=== PATIENT | female | born 1945 | race Caucasian/White ===

== ENCOUNTER → 2016-05-16 | Outpatient (CLI) | payer MEDICARE, OTHER ==
[2016-05-16 10:15] LABS: HEMATOCRIT 33.9 % (36.0-47.0); HEMOGLOBIN 10.7 g/dL (12.0-15.5); HGB HCT DIFFERENCE -1.8; MEAN CORPUSCULAR HEMOGLOBIN 19.8 pg (27.0-33.4); MEAN CORPUSCULAR HGB CONC 31.6 g/dL (32.0-36.0); RED CELL DISTRIBUTION WIDTH 16.6 % (11.5-14.0); WHITE BLOOD COUNT 6.8 10^3/uL (4.0-10.5)
[2016-05-16 10:16] LABS: MEAN CORPUSCULAR VOLUME 63 fl (80-97)
[2016-05-16 10:34] LABS: ALANINE AMINOTRANSFERASE 9 U/L (9-52); ALBUMIN 4.3 g/dL (3.5-5.0); ALKALINE PHOSPHATASE 64 U/L (38-126); ANION GAP 9 (5-19); ASPARTATE AMINO TRANSFERASE 24 U/L (14-36); BILIRUBIN,TOTAL 0.8 mg/dL (0.2-1.3); BLOOD UREA NITROGEN 16 mg/dL (7-20); CALCIUM 9.5 mg/dL (8.4-10.2); CARBON DIOXIDE 29 mmol/L (22-30); CHLORIDE 101 mmol/L (98-107); CHOLESTEROL 128.73 mg/dL (0-200); CREATININE RESULT 0.71 mg/dL (0.52-1.25); Direct HDL 74 mg/dL (>40); GLUCOSE 133 mg/dL (75-110); POTASSIUM 4.5 mmol/L (3.6-5.0); SODIUM 138.9 mmol/L (137-145); TOTAL PROTEIN 7.2 g/dL (6.3-8.2); TRIGLYCERIDES 80 mg/dL (<150)
[2016-05-16 10:45] LABS: DIRECT LDL 33 mg/dL (<100)
[2016-05-16 11:01] LABS: FREE T3 3.35 pg/mL (2.77-5.27)
[2016-05-16 11:15] LABS: THYROID STIMULATING HORMONE 1.57 uIU/mL (0.47-4.68)
[2016-05-16 12:42] LABS: ALANINE AMINOTRANSFERASE 9 U/L (9-52); ALBUMIN 4.3 g/dL (3.5-5.0); ALKALINE PHOSPHATASE 64 U/L (38-126); AMYLASE 32 U/L (30-110); ASPARTATE AMINO TRANSFERASE 24 U/L (14-36); BILIRUBIN,TOTAL 0.8 mg/dL (0.2-1.3); CHOLESTEROL 128.73 mg/dL (0-200); DIRECT LDL 33 mg/dL (<100); Direct HDL 74 mg/dL (>40); TOTAL PROTEIN 7.2 g/dL (6.3-8.2); TRIGLYCERIDES 80 mg/dL (<150)
== END ==
LOC: OD 08:37
PROVIDERS: ATTEND Family Medicine
DX: E03.9 Hypothyroidism, unspecified (principal); E78.5 Hyperlipidemia, unspecified; R82.90 Unspecified abnormal findings in urine; G31.84 Mild cognitive impairment of uncertain or unknown etiology; R51 Headache
CPT/HCPCS: 36415; 80053; 80061; 80076; 82150; 82607; 82746; 83036; 84439; 84443; 84481; 85027; 86592; 87086

== ENCOUNTER 2016-05-23 14:55 | Emergency (ER) | payer MEDICARE, OTHER ==
--- NOTE | 2016-05-23 15:04 | ER Document Report ---
ED Medical Screen (RME) - General Stated Complaint: ONE SIDE WEAKNESS Time seen by provider: 15:03 Mode of Arrival: Wheelchair Information source: Patient, Relative Notes: 71-year-old female presented to ED for possible stroke symptoms started 30 minutes ago. She has numbness and tingling to the right side of her face. Speech mildly garbled states it was more so before she came. She also has weakness to her right arm. states she's had a TIA in the past. was notified CT of the head ordered. I have greeted and performed a rapid initial assessment of this patient. A comprehensive ED assessment and evaluation of the patient, analysis of test results and completion of medical decision making process will be conducted by an additional ED providers. TRAVEL OUTSIDE OF THE [place] IN LAST 30 DAYS: No - Related Data Allergies/Adverse Reactions: Sulfa (Sulfonamide Antibiotics) Allergy (Verified 10/18/11 10:34) Hives Past Medical History - Social History Family history: Reviewed & Not Pertinent - Past Medical History Cardiac Medical History: Reports: Hx Hypertension Pulmonary Medical History: Neurological Medical History: Endocrine Medical History: Reports: Hx Diabetes Mellitus Type 1, Hx Diabetes Mellitus Type 2, Hx Hypothyroidism GI Medical History: Musculoskeltal Medical History: Reports Hx Arthritis Infectious Medical History: Past Surgical History: Reports: Hx Appendectomy, Hx Section, Hx Neurologic Surgery - CARPAL TUNNEL, Hx Orthopedic Surgery - BACK SURGERY. CARPAL TUNNEL RELEASE. - Immunizations Hx Diphtheria, Pertussis, Tetanus Vaccination: Yes
[2016-05-23 15:40] LABS: PROTHROMBIN TIME 12.8 SEC (11.4-15.4)
[2016-05-23 15:41] LABS: PARTIAL THROMBOPLASTIN TIME 29.5 SEC (23.5-35.8)
[2016-05-23 15:42] LABS: ABSOLUTE BASOPHILS # (AUTO) 0.1 10^3/uL (0.0-0.2); ABSOLUTE EOSINOPHILS # (AUTO) 0.2 10^3/uL (0.0-0.6); ABSOLUTE LYMPHOCYTES (AUTO) 2.1 10^3/uL (0.5-4.7); ABSOLUTE MONOCYTES (AUTO) 0.9 10^3/uL (0.1-1.4); ABSOLUTE NEUT (AUTO) 6.2 10^3/uL (1.7-8.2); BASOPHILS % (AUTO) 0.6 % (0-2); EOSINOPHILS % (AUTO) 2.4 % (0-6); HEMATOCRIT 35.8 % (36.0-47.0); HEMOGLOBIN 11.3 g/dL (12.0-15.5); HGB HCT DIFFERENCE -1.9; LYMPHOCYTES % (AUTO) 22.2 % (13-45); MEAN CORPUSCULAR HEMOGLOBIN 19.8 pg (27.0-33.4); MEAN CORPUSCULAR HGB CONC 31.4 g/dL (32.0-36.0); MEAN CORPUSCULAR VOLUME 63 fl (80-97); MONOCYTES % (AUTO) 9.3 % (3-13); RED BLOOD COUNT 5.68 10^6/uL (3.72-5.28); RED CELL DISTRIBUTION WIDTH 16.7 % (11.5-14.0); SEGMENTED NEUTROPHILS % (AUTO) 65.5 % (42-78); WHITE BLOOD COUNT 9.5 10^3/uL (4.0-10.5)
[2016-05-23 15:58] LABS: ALANINE AMINOTRANSFERASE 14 U/L (9-52); ALBUMIN 4.1 g/dL (3.5-5.0); ALKALINE PHOSPHATASE 66 U/L (38-126); ANION GAP 7 (5-19); ASPARTATE AMINO TRANSFERASE 27 U/L (14-36); BILIRUBIN,TOTAL 0.5 mg/dL (0.2-1.3); BLOOD UREA NITROGEN 17 mg/dL (7-20); CALCIUM 9.7 mg/dL (8.4-10.2); CARBON DIOXIDE 28 mmol/L (22-30); CHLORIDE 103 mmol/L (98-107); CREATINE KINASE 116 U/L (30-135); CREATININE RESULT 0.83 mg/dL (0.52-1.25); GLUCOSE 102 mg/dL (75-110); MAGNESIUM 1.8 mg/dL (1.6-2.3); POTASSIUM 4.5 mmol/L (3.6-5.0); SODIUM 138.1 mmol/L (137-145); TOTAL PROTEIN 7.6 g/dL (6.3-8.2)
[2016-05-23 16:01] LABS: ANISOCYTOSIS 1+; HYPOCHROMASIA 1+; MICROCYTOSIS 2+; OVALOCYTES SLIGHT; TARGET CELLS SLIGHT; TOXIC GRANULATION SLIGHT
[2016-05-23 16:10] LABS: CREATINE KINASE MB 2.12 ng/mL (<4.55); TROPONIN I < 0.012 ng/mL
--- NOTE | 2016-05-23 16:57 | ER Document Report ---
ED General - General Chief Complaint: S/S of Possible Stroke Stated Complaint: ONE SIDE WEAKNESS Time seen by provider: 15:15 Mode of Arrival: Wheelchair Information source: Patient Notes: 71-year-old female who reports a sensation of drawing in her left hand tingling in her left face and bilateral blurry vision beginning about 2:30 this afternoon. Note that triage notes document right sided tingling but the patient to this examiner says it was the left. After arrival and were sperm she also felt as if her left foot was drawing up towards her head she says the visual disturbances had resolved and tingling in her face had resolved and the drawing in her left hand had resolved. Shortly after initial examination by this physician the patient reports her left foot symptoms and also resolved. She reports she has a history of Parkinson's and chronically has left upper and lower extremity weakness and does not feel as if the weakness is any different than her baseline. She has had no syncope or confusion according to transportation attendant whether. She reports that for 3 months she is intermittently had a cough has been nonproductive and has taken a Z-Jesus Alberto for his says cough feels better now. She denies chest pain, abdominal pain, back pain, nausea, vomiting, dysuria, swelling to extremities, right-sided symptoms, difficulty with speech or swallowing. Review of records indicates an admission for TIA workup about 2 years ago with similar symptoms Physical Exam: General: Alert, appears well. HEENT: Normocephalic. Atraumatic. PERRLA. Extraocular movements intact. Oropharynx clear. Neck: Supple. Non-tender. No JVD no carotid bruits Respiratory: No respiratory distress. Clear and equal breath sounds bilaterally. Cardiovascular: Regular rate and rhythm. Abdominal: Normal Inspection. Soft, non-tender. No distension. Normal Bowel Sounds. Back: Non-tender. No deformity or step off. Extremities: Moves all four extremities. Upper extremities: Normal inspection. Non-tender. Normal color. Normal ROM. Normal temperature. Lower extremities: Normal inspection. Non-tender. No edema. Normal color. Normal ROM. Normal temperature. Neurological: Cranial nerves III through XII are intact. Speech is clear. Mentation normal. Market Analyst strength 4+ out of 5 to the left upper extremity compared to 5 out of 5 on the right. Motor function 4+ out of 5 to left lower extremities. 5 out of 5 on the right. Light touch sensation intact all 4 extremities. Cerebellar function intact by finger-nose test bilaterally. Patient ambulates with no difficulty Psychological: Normal affect. Normal Mood. Skin: Warm. Dry. Normal color. TRAVEL OUTSIDE OF THE [place] IN LAST 30 DAYS: No - Related Data Allergies/Adverse Reactions: Sulfa (Sulfonamide Antibiotics) Allergy (Verified 10/18/11 10:34) Hives Past Medical History - General Information source: Patient, Relative - Social History Smoking Status: Former Smoker Family History: Reviewed & Not Pertinent Patient has suicidal ideation: No Patient has homicidal ideation: No - Past Medical History Cardiac Medical History: Reports: Hx Hypertension Pulmonary Medical History: Neurological Medical History: Reports: Other - Parkinson's disease Endocrine Medical History: Reports: Hx Diabetes Mellitus Type 1, Hx Diabetes Mellitus Type 2, Hx Hypothyroidism Renal/ Medical History: Denies: Hx Peritoneal Dialysis GI Medical History: Musculoskeltal Medical History: Reports Hx Arthritis Infectious Medical History: Past Surgical History: Reports: Hx Appendectomy, Hx Section, Hx Neurologic Surgery - CARPAL TUNNEL, Hx Orthopedic Surgery - BACK SURGERY. CARPAL TUNNEL RELEASE. - Immunizations Hx Diphtheria, Pertussis, Tetanus Vaccination: Yes Review of Systems - Review of Systems Constitutional: denies: Chills, Fever EENT: Blurred vision. denies: Ear pain, Throat pain Cardiovascular: denies: Chest pain, Palpitations, Dyspnea, Syncope Respiratory: Cough. denies: Short of breath Gastrointestinal: denies: Abdominal pain, Diarrhea, Nausea, Vomiting Genitourinary: denies: Burning, Dysuria Female Genitourinary: denies: Musculoskeletal: denies: Back pain, Muscle pain Skin: denies: Rash Hematologic/Lymphatic: denies: Swollen glands Neurological/Psychological: See HPI Physical Exam - Vital signs Vitals: Pulse Resp BP Pulse Ox 62 19 157/64 H 99 05/23/16 15:30 05/23/16 15:30 05/23/16 15:30 05/23/16 15:30 Course - Re-evaluation Re-evalutation: 05/23/16 16:57 Patient has remained at her neurologic baseline during her stay in emergency department. Patient reports that she was instructed to take baby aspirin after her last TIA admission but recently has not been doing so. She doesn't wish to be admitted to the hospital given the fact that she's had workup for this within the past few years and don't believe she requires readmission for another TIA workup. She is instructed to resume her baby aspirin and follow her physician Dr. Zendejas. She reports her cough is improved and clinically she is not having acute bronchitis now doesn't require treatment for that - Vital Signs Vital signs: Temp Pulse Resp BP Pulse Ox 98.2 F 62 18 157/64 H 98 05/23/16 15:34 05/23/16 15:34 05/23/16 16:06 05/23/16 15:34 05/23/16 16:06 - Laboratory Result Diagrams: 05/23/16 15:25 05/23/16 15:25 Laboratory results interpreted by me: 05/23/16 15:25 RBC 5.68 H Hgb 11.3 L Hct 35.8 L MCV 63 L MCH 19.8 L MCHC 31.4 L RDW 16.7 H - Diagnostic Test Radiology reviewed: Image reviewed, Reports reviewed - EKG Interpretation by Me Additional EKG results interpreted by me: 05/23/16 16:51 EKG reviewed by myself shows sinus rhythm at 80 with no acute changes Discharge - Discharge Clinical Impression: TIA (transient ischemic attack) Qualifiers: Transient cerebral ischemia type: unspecified Qualified Code(s): G45.9 - Transient cerebral ischemic attack, unspecified Condition: Stable Disposition: HOME, SELF-CARE Additional Instructions: Transient Ischemic Attack You have been diagnosed as having a transient ischemic attack (TIA). This is caused when an artery to the brain has been temporarily blocked. It can result in visual changes, difficulty with speech, and weakness or numbness -- usually limited to one side of the body. TIA symptoms usually resolve within an hour, but a TIA is serious, as it may be a warning sign of an impending stroke. To prevent further episodes, you may be placed on medication to reduce the possibility that your platelets will aggregate and form blood clots in the arteries that supply the brain. Usually, this includes aspirin and sometimes other platelet inhibitors. Further evaluation is often necessary to make an exact diagnosis as to where these blood clots are originating, and if anything else needs to be done to correct the problem. Call the physician or go to the emergency room if episodes occur with increasing frequency. If symptoms occur that don't go away within a few minutes , call 911. Take 1 baby aspirin every day Referrals: CHARISMA ZENDEJAS MD [Primary Care Provider] - Follow up in 1 week
[2016-05-23] MEDS ORDERED: ASPIRIN 325 MG TABLET, ENT COATED PO ONE (16:59)
[2016-05-23 17:08] VITALS: BP 166/61
--- NOTE | 2016-05-23 23:48 | EKG REPORT ---
SEVERITY:- BORDERLINE ECG - SINUS RHYTHM PROBABLE LEFT ATRIAL ABNORMALITY : Confirmed by: Joslyn Pendleton 23-May-2016 23:48:08
== END 2016-05-23 17:10 | disposition home or self-care (01) ==
LOC: ER 14:55
DX: G45.9 Transient cerebral ischemic attack, unspecified (principal); R20.2 Paresthesia of skin; H53.8 Other visual disturbances; R05 Cough; G20 Parkinson's disease; I10 Essential (primary) hypertension; Z87.891 Personal history of nicotine dependence; E11.9 Type 2 diabetes mellitus without complications
CPT/HCPCS: 93005; 99285; 36415; 82553; 82550; 83735; 85025; 85610; 85730; 80053; 84484; 71010; 70450; 93010; A9270

== ENCOUNTER → 2016-05-31 | Outpatient (CLI) | payer MEDICARE, OTHER ==
--- NOTE | 2016-06-01 15:08 | CAROTID DOPPLER PRO FEE REPORT ---
CAROTID DUPLEX DOPPLER REPORT PATIENT NAME: DARRON ARZOLA ROOM#: DATE OF STUDY: 05/31/2016 DATE OF : 1945 REFERRING MD: JAIME VIVAR M.D. ORDER NO: [id number] TECHNOLOGIST: Lloyd Lewis INDICATION: TIA STUDY: The color carotid duplex scan was performed with real time images and real time Doppler velocity measurements. Real time images indicated no plaque formation, either right or left carotid artery. Doppler velocity measurements were as follows: MEASUREMENT: RIGHT LEFT CCA PSV (prox/mid) 97 cm/sec 97 cm/sec CCA PSV (distal) 67 cm/sec 80 cm/sec CCA EDV (prox/mid) 11 cm/sec 19 cm/sec CCA EDV (distal) 12 cm/sec 21 cm/sec ICA PSV (proximal) 47 cm/sec 55 cm/sec ICA PSV (distal) 75 cm/sec 72 cm/sec ICA EDV (proximal) 12 cm/sec 14 cm/sec ICA EDV (distal) 22 cm/sec 21 cm/sec ECA 101 cm/sec 85 cm/sec ICA/CCA RATIO: 1.1 on the right and 0.9 on the left. Vertebrals are patent. Flow is cephalad. FINAL IMPRESSION: NO PLAQUE FORMATION, LESS THAN 50% STENOTIC FLOW, ESSENTIALLY A NORMAL STUDY. INTERPRETING PHYSICIAN: JAIME VIVAR M.D. /: HAM TT: 1503 ID: [id number] /: [id number] TD: [id number] JOB: [id number] cc:JAIME VIVAR M.D. >
== END ==
LOC: SP 13:57
PROVIDERS: ATTEND Specialist
DX: G45.9 Transient cerebral ischemic attack, unspecified (principal); R56.9 Unspecified convulsions
CPT/HCPCS: 93880

== ENCOUNTER → 2016-06-22 | Outpatient (CLI) | payer MEDICARE, OTHER | LOC: OD 16:56 | PROVIDERS: ATTEND Physician Assistant Surgical | DX: R19.5 Other fecal abnormalities (principal); R10.13 Epigastric pain; R11.0 Nausea; Z11.59 Encounter for screening for other viral diseases ==

== ENCOUNTER 2016-07-18 22:26 | Emergency (ER) | payer MEDICARE, OTHER ==
--- NOTE | 2016-07-18 23:16 | ER Document Report ---
ED General - General Chief Complaint: S/S of Possible Stroke Stated Complaint: POSSIBLE STROKE Time seen by provider: 23:02 Mode of Arrival: Ambulatory - Is Information source: Patient, Relative TRAVEL OUTSIDE OF THE [place] IN LAST 30 DAYS: No - HPI Notes: Patient is a 71-year-old white female history of previous TIAs and Parkinson's disease comes in with report that she has headache that has been off and on during the course of the day and reports she feels somewhat disoriented versus her baseline. She reports occasional tingling in the legs and occasionally in the face, but she also has diabetic neuropathy. She also has chronic back pain. Patient usually takes hydrocodone almost daily but a very small dose 7.5 mg less than 1 tablet per day, as she breaks tablets and a quarters. She did not take any of the pain medication today. Patient reports previous history of headaches remotely, but has not had a headache for some time. She denies head injury. She states this is not the worst headache of her life. She denies any neck stiffness. She reports no focal weakness that is new, stating that occasionally she feels like her left hand feels stiff, but she has some pain from the wrist to the hand which is chronic associated with this. No nausea or vomiting. No fever or chills. - Related Data Allergies/Adverse Reactions: Sulfa (Sulfonamide Antibiotics) Allergy (Verified 10/18/11 10:34) Hives Past Medical History - Social History Smoking Status: Never Smoker Frequency of alcohol use: None Drug Abuse: None Lives with: Family Family History: Reviewed & Not Pertinent Patient has suicidal ideation: No Patient has homicidal ideation: No - Past Medical History Cardiac Medical History: Reports: Hx Hypertension Pulmonary Medical History: Neurological Medical History: Endocrine Medical History: Reports: Hx Diabetes Mellitus Type 1, Hx Diabetes Mellitus Type 2, Hx Hypothyroidism Renal/ Medical History: Denies: Hx Peritoneal Dialysis GI Medical History: Musculoskeltal Medical History: Reports Hx Arthritis Infectious Medical History: Past Surgical History: Reports: Hx Appendectomy, Hx Section, Hx Neurologic Surgery - CARPAL TUNNEL, Hx Orthopedic Surgery - BACK SURGERY. CARPAL TUNNEL RELEASE. - Immunizations Hx Diphtheria, Pertussis, Tetanus Vaccination: Yes Review of Systems - Review of Systems Notes: REVIEW OF SYSTEMS: CONSTITUTIONAL : Denies fever, chills, or sweats. Denies recent illness. EENT: Denies eye, ear, throat, or mouth pain or symptoms. Denies nasal or sinus congestion or discharge. Denies throat, tongue, or mouth swelling or difficulty swallowing. CARDIOVASCULAR: Denies chest pain. Denies palpitations or racing or irregular heart beat. Denies ankle edema. RESPIRATORY: Denies cough, cold, or chest congestion. Denies shortness of breath, difficulty breathing, or wheezing. GASTROINTESTINAL: Denies abdominal pain or distention. Denies nausea, vomiting , or diarrhea. Denies blood in vomitus, stools, or per rectum. Denies black, tarry stools. Denies constipation. GENITOURINARY: Denies difficulty urinating, painful urination, burning, frequency, blood in urine, or discharge. FEMALE GENITOURINARY: Denies vaginal bleeding, heavy or abnormal periods, irregular periods. Denies vaginal discharge or odor. MUSCULOSKELETAL: Denies neck pain or stiffness. Denies joint pain or swelling. Patient reports chronic back pain which is unchanged. She denies any recent back injury. SKIN: Denies rash, lesions or sores. HEMATOLOGIC : Denies easy bruising or bleeding. LYMPHATIC: Denies swollen, enlarged glands. NEUROLOGICAL: Denies altered mental status. Patient states she feels confused , but reports she seems to be acting normally. Denies passing out or loss of consciousness. Denies dizziness or lightheadedness. Denies new problems with gait or speech. Denies seizures. Patient reports she chronically has trouble ambulating related to her Parkinson' s disease. She usually uses her to assist her in ambulation, but she also has a walker that she has access to at home. PSYCHIATRIC: Patient admits to anxiety stating "I don't know what's going on," when she starts to cry. Denies depression, suicidal ideation, or homicidal ideation. ALL OTHER SYSTEMS REVIEWED AND NEGATIVE. Dictation was performed using [employer] voice recognition software -: Yes All other systems reviewed and negative Physical Exam - Vital signs Vitals: Temp Pulse Resp BP Pulse Ox 97.5 F 90 20 151/70 H 98 07/18/16 22:28 07/18/16 22:28 07/18/16 22:28 07/18/16 22:28 07/18/16 22:28 - Notes Notes: PHYSICAL EXAMINATION: GENERAL: Well-appearing, well-nourished. Anxious and occasionally breaks down in tears. HEAD: Atraumatic, normocephalic. EYES: Pupils equal round and reactive to light, extraocular movements intact, conjunctiva are normal. ENT: Nares patent, oropharynx clear without exudates. Moist mucous membranes. NECK: Normal range of motion, supple without lymphadenopathy. No carotid bruits. LUNGS: Breath sounds clear to auscultation bilaterally and equal. No wheezes rales or rhonchi. HEART: Regular rate and rhythm without murmurs ABDOMEN: Soft, nontender, nondistended abdomen. No guarding, no rebound. No masses appreciated. Female : deferred Musculoskeletal: Normal range of motion. No cyanosis. 1+ bilateral lower extremity edema, which patient states is chronic. NEUROLOGICAL: Cranial nerves grossly intact. Normal speech, normal gait. Motor exam shows no unilateral weakness with 5 over 5 motor strength. Patient does have a very very minimal parkinsonian intention tremor noted. Finger to nose test shows no significant ataxia but more of the intention tremor. PSYCH: Anxious. SKIN: Warm, Dry, normal turgor, no rashes or lesions noted. Course - Re-evaluation Re-evalutation: 07/19/16 01:27 After morphine and Zofran and by mouth Ativan, the patient reported improvement in her headache, but she stated she started having some chest pain with some belching. Repeat EKG at 00 56 as interpreted by me showed normal sinus rhythm hard of 71. There is no gross evidence for acute FL or ischemia identified. There was no change from previous EKG performed on the patient Patient was given Maalox and Pepcid by mouth. 07/19/16 02:49 After Maalox and Pepcid, the patient denied any chest discomfort. The patient reported no headache and she requested to go home. There is no evidence for anemia, hypoglycemia, significant electrolyte imbalance , CVA or obvious TIA. Cardiac ischemia, pneumonia, congestive heart failure. Patient's symptoms fit with prior episodes and giving her episodes of crying and anxiety, question anxiety is part of the etiology for the patient's symptoms. Patient was reassured. - Vital Signs Vital signs: Temp Pulse Resp BP Pulse Ox 97.5 F 90 20 151/70 H 98 07/18/16 22:28 07/18/16 22:28 07/18/16 22:28 07/18/16 22:28 07/18/16 22:28 - Laboratory Result Diagrams: 07/18/16 23:00 07/18/16 23:00 Laboratory results interpreted by me: 07/18/16 07/18/16 07/18/16 23:00 23:00 23:52 Hgb 10.6 L Hct 33.4 L MCV 64 L MCH 20.2 L MCHC 31.7 L RDW 17.3 H BUN 21 H Glucose 183 H AST 47 H Urine Protein 100 H Urine Ketones TRACE H Ur Leukocyte Esterase TRACE H Urine Ascorbic Acid 20 H - EKG Interpretation by Me EKG shows normal: Sinus rhythm - EKG as interpreted by me showed normal sinus rhythm heart rate of 79. There is no gross evidence for acute FL or ischemia identified. Rate: Normal Additional EKG results interpreted by me: 07/19/16 01:26 Initial EKG is interpreted by me showed normal sinus rhythm and heart of 79. There is no gross evidence for acute FL or ischemia identified. Discharge - Discharge Clinical Impression: Dehydration Headache Qualifiers: Headache type: unspecified Headache chronicity pattern: acute headache Intractability: not intractable Qualified Code(s): R51 - Headache Altered mental state Qualifiers: Altered mental status type: unspecified Qualified Code(s): R41.82 - Altered mental status, unspecified Clinical Impression: (Ruled Out): Headache , short unilat neuralgiform, w/conjunctival injection/ tearing Condition: Stable Disposition: HOME, SELF-CARE Additional Instructions: Anxiety The physician feels that some of your health problems are being caused by anxiety. Anxiety affects your health in many ways. Anxiety alone can cause palpitations, sweats, chest pains, abdominal pains, shortness of breath, and headaches. It contributes to ulcer disease, high blood pressure, irritable bowel syndrome, and has been shown to cause flare-ups of many other diseases. Anxiety is not a simple disorder to treat. If the anxiety is due to recent life stresses, you may simply need time to "work through" the changes. If the anxiety is due to an underlying unhappiness with yourself or due to psychiatric disturbance, professional help will be needed. Your physician can refer you for further help if needed. Anti-anxiety medication is occasionally given if the stress is acute or if you are having trouble sleeping. Chronic or frequent use of these medications is not a good idea because the body becomes reliant on it, preventing you from dealing with life's normal stresses.Dehydration Dehydration can result from vomiting or diarrhea, fever, or decreased intake of fluids. If severe, hospitalization and intravenous fluids may be required. Most cases are treated at home with fluids by mouth. For the next 24 hours, drink lots of clear fluids. In mild cases, this can be soda pop or sports drinks. For more severe dehydration, the doctor may recommend special fluids such as Pedialyte or Lytren. Try to get three liters ( 3 quarts) of fluid per day. If vomiting occurs, continue to drink the fluids frequently (every 15 to 20 minutes), but in small amounts (one or two ounces). Depending on the type of dehydration, the doctor may prescribe antinausea medicine or potassium replacements. Call the doctor or return for re-examination if you become progressively weak, vomit repeatedly, or have other new symptoms. Headache The physician does not feel that the headache you are experiencing has a serious underlying cause. Most headaches are due to emotional stress, with resultant muscle tension (tension headache). Occasionally, headaches are secondary to changes in the blood vessels of the scalp (vascular headache and migraine headache). Sometimes, a headache is the first symptom of another developing illness, such as a viral infection. You have no evidence of stroke, bleeding, meningitis, or other serious cause of your headache. The treatment of headaches varies with the severity and cause of the pain. Not all headaches need pain shots. In fact, there is evidence that using narcotics for headaches may make them worse in the long run. The physician will determine the therapy that's in your best interest. If you develop a fever, if the headache is different from any you've previously experienced, or if the headache progressively worsens, then call your physician at once or go to the emergency room. Take your hydrocodone pain medication as directed for any further headache. Drink plenty of fluids. Referrals: CHARISMA CRUZ MD [Primary Care Provider] - Follow up as needed
[2016-07-18] MEDS ORDERED: ONDANSETRON HCL INJ/PF 4 MG/2 ML SDV IV ONE (23:18)
[2016-07-18] MEDS ORDERED: MORPHINE SULFATE 10 MG/ML INJ IV ONE (23:18)
[2016-07-18] MEDS ORDERED: LORAZEPAM 1 MG TABLET PO ONE (23:18)
[2016-07-18] MEDS ORDERED: ACETAMINOPHEN 325 MG TABLET PO ONE (23:22)
[2016-07-18 23:23] LABS: PROTHROMBIN TIME 12.8 SEC (11.4-15.4)
[2016-07-18 23:28] LABS: ABSOLUTE BASOPHILS # (AUTO) 0.1 10^3/uL (0.0-0.2); ABSOLUTE EOSINOPHILS # (AUTO) 0.2 10^3/uL (0.0-0.6); ABSOLUTE LYMPHOCYTES (AUTO) 1.7 10^3/uL (0.5-4.7); ABSOLUTE MONOCYTES (AUTO) 0.7 10^3/uL (0.1-1.4); BASOPHILS % (AUTO) 0.9 % (0-2); EOSINOPHILS % (AUTO) 2.8 % (0-6); HEMATOCRIT 33.4 % (36.0-47.0); HEMOGLOBIN 10.6 g/dL (12.0-15.5); HGB HCT DIFFERENCE -1.6; LYMPHOCYTES % (AUTO) 22.6 % (13-45); MEAN CORPUSCULAR HEMOGLOBIN 20.2 pg (27.0-33.4); MEAN CORPUSCULAR HGB CONC 31.7 g/dL (32.0-36.0); MONOCYTES % (AUTO) 9.2 % (3-13); RED BLOOD COUNT 5.23 10^6/uL (3.72-5.28); RED CELL DISTRIBUTION WIDTH 17.3 % (11.5-14.0); SEGMENTED NEUTROPHILS % (AUTO) 64.5 % (42-78); WHITE BLOOD COUNT 7.7 10^3/uL (4.0-10.5)
[2016-07-18 23:41] LABS: ALANINE AMINOTRANSFERASE 17 U/L (9-52); ALBUMIN 4.6 g/dL (3.5-5.0); ALKALINE PHOSPHATASE 68 U/L (38-126); ANION GAP 12 (5-19); ASPARTATE AMINO TRANSFERASE 47 U/L (14-36); BILIRUBIN,DIRECT 0.3 mg/dL (0.0-0.4); BILIRUBIN,TOTAL 0.6 mg/dL (0.2-1.3); BLOOD UREA NITROGEN 21 mg/dL (7-20); CALCIUM 9.5 mg/dL (8.4-10.2); CARBON DIOXIDE 24 mmol/L (22-30); CHLORIDE 104 mmol/L (98-107); CREATININE RESULT 0.67 mg/dL (0.52-1.25); GLUCOSE 183 mg/dL (75-110); POTASSIUM 3.9 mmol/L (3.6-5.0); SODIUM 140.1 mmol/L (137-145); TOTAL PROTEIN 7.4 g/dL (6.3-8.2)
[2016-07-19 00:03] LABS: ANISOCYTOSIS 1+; BURR CELLS SLIGHT; HYPOCHROMASIA 1+; MICROCYTOSIS 3+; OVALOCYTES SLIGHT; POIKILOCYTOSIS SLIGHT; SCHISTOCYTES SLIGHT; TARGET CELLS SLIGHT; TOXIC GRANULATION SLIGHT
[2016-07-19 00:04] LABS: MEAN CORPUSCULAR VOLUME 64 fl (80-97)
[2016-07-19 00:12] LABS: THYROID STIMULATING HORMONE 2.57 uIU/mL (0.47-4.68)
[2016-07-19 00:25] LABS: APPEARANCE,URINE CLEAR; BILIRUBIN,URINE NEGATIVE (NEGATIVE); GLUCOSE, URINE NEGATIVE (NEGATIVE); KETONES,URINE TRACE mg/dL (NEGATIVE); LEUKOCYTE ESTERASE,URINE TRACE (NEGATIVE); NITRITE,URINE NEGATIVE (NEGATIVE); PROTEIN,URINE 100 mg/dL (NEGATIVE); UROBILINOGEN,URINE NEGATIVE mg/dL (<2.0)
[2016-07-19] MEDS ORDERED: FAMOTIDINE 20 MG TABLET PO ONE (00:35)
[2016-07-19] MEDS ORDERED: MAG HYDROX/AL HYDROX/SIMETH SUSP 30 ML UDCUP PO ONE (00:35)
[2016-07-19 03:31] VITALS: BP 126/54
--- NOTE | 2016-07-19 07:19 | EKG REPORT ---
SEVERITY:- NORMAL ECG - SINUS RHYTHM : Confirmed by: Lupillo Murray MD 19-Jul-2016 07:18:27
[2016-07-19 11:35] LABS: PATH REVIEW PATHOLOGIST REVIEWED
== END 2016-07-19 03:10 | disposition home or self-care (01) ==
LOC: ER 22:26
DX: R51 Headache (principal); E86.0 Dehydration; R41.82 Altered mental status, unspecified; R20.2 Paresthesia of skin; E11.40 Type 2 diabetes mellitus with diabetic neuropathy, unspecified; G89.29 Other chronic pain; M54.9 Dorsalgia, unspecified; I10 Essential (primary) hypertension; G20 Parkinson's disease; Z88.2 Allergy status to sulfonamides; Z86.73 Personal history of transient ischemic attack (TIA), and cerebral infarction without residual deficits
CPT/HCPCS: 93005; 99285; 96374; 96375; 36415; 84439; 82962; 84443; 85025; 85610; 80053; 81001; 84484; 71010; 70450; 93010; A9270 ×3; J2270; J2405

== ENCOUNTER → 2016-08-03 | Outpatient (CLI) | payer MEDICARE | LOC: OD 16:57 | PROVIDERS: ATTEND Family Medicine | DX: E03.9 Hypothyroidism, unspecified (principal); Z79.899 Other long term (current) drug therapy | CPT/HCPCS: 36415; 84436; 84443 ==

== ENCOUNTER → 2016-11-28 | Outpatient (CLI) | payer MEDICARE, OTHER | LOC: OD 08:08 | PROVIDERS: ATTEND Family Medicine | DX: E03.9 Hypothyroidism, unspecified (principal); E78.5 Hyperlipidemia, unspecified; E11.9 Type 2 diabetes mellitus without complications; Z79.899 Other long term (current) drug therapy | CPT/HCPCS: 36415; 82043; 83036 ==

== ENCOUNTER → 2017-02-26 | Outpatient (CLI) | payer MEDICARE, OTHER ==
--- NOTE | 2017-02-26 14:41 | RADIOLOGY REPORT (SQ) ---
EXAM DESCRIPTION: CT ABD/PELVIS ORAL ONLY COMPLETED DATE/TIME: 02/26/2017 9:02 am REASON FOR STUDY: BLOATING (R14.0), ABN WEIGHT LOSS (R63.4), CONSTIPATION (K59.01) R14.0 ABDOMINAL DISTENSION (GASEOUS) K30 FUNCTIONAL DYSPEPSIA R63.4 ABNORMAL WEIGHT LOSS COMPARISON: None. TECHNIQUE: CT scan of the abdomen and pelvis performed with oral contrast and no intravenous contras t. Images reviewed with lung, soft tissue, and bone windows. Reconstructed coronal and sagittal MPR i mages reviewed. All images stored on PACS. All CT scanners at this facility use dose modulation, iterative reconstruction, and/or weight based d osing when appropriate to reduce radiation dose to as low as reasonably achievable (ALARA). [facility]: Dose Right [facility]: CareDose [facility]: Dose Right [facility]: Teradose 4D [facility]: [employer] RADIATION DOSE: Up-to-date CT equipment and radiation dose reduction techniques were employed. CTDIv ol: 17.2 mGy. DLP: 898 mGy-cm. mGy. LIMITATIONS: None. FINDINGS: LOWER CHEST: No significant findings. No nodules or infiltrates. NON-CONTRASTED LIVER, SPLEEN, ADRENALS: Evaluation limited by lack of IV contrast. No identified sign ificant masses. PANCREAS: No masses. No peripancreatic inflammatory changes. GALLBLADDER: Surgically absent. RIGHT KIDNEY AND URETER: No suspicious masses. Assessment limited by lack of IV contrast. No signif icant calcifications. No hydronephrosis or hydroureter. LEFT KIDNEY AND URETER: No suspicious masses. Assessment limited by lack of IV contrast. No signifi cant calcifications. No hydronephrosis or hydroureter. AORTA AND RETROPERITONEUM: No aneurysm. No retroperitoneal masses or adenopathy. BOWEL AND PERITONEAL CAVITY: There is a filling defect in the proximal ascending colon suspicious for an apple-core lesion. No ascites or free air. APPENDIX: Not visualized. PELVIS, BLADDER, AND ABDOMINAL WALL: No abnormal pelvic masses. No abdominal wall hernias. Bladder un remarkable. BONES: No acute findings OTHER: No other significant finding. IMPRESSION: Suspected apple-core lesion in the proximal ascending colon. TECHNICAL DOCUMENTATION: JOB ID: [id number] Quality ID # [id number]: Final reports with documentation of one or more dose reduction techniques (e.g., Au tomated exposure control, adjustment of the mA and/or kV according to patient size, use of iterative reconstruction technique) 2010 [employer]- All Rights Reserved
== END ==
LOC: RAD 08:10
PROVIDERS: ATTEND Internal Medicine Gastroenterology
DX: R14.0 Abdominal distension (gaseous) (principal); K30 Functional dyspepsia; R63.4 Abnormal weight loss; K59.01 Slow transit constipation; R10.816 Epigastric abdominal tenderness
CPT/HCPCS: 74176

== ENCOUNTER → 2017-06-07 | Outpatient (CLI) | payer MEDICARE, OTHER ==
[2017-06-07 09:16] LABS: ALANINE AMINOTRANSFERASE 14 U/L (9-52); ALBUMIN 4.3 g/dL (3.5-5.0); ALKALINE PHOSPHATASE 48 U/L (38-126); AMYLASE 30 U/L (30-110); ASPARTATE AMINO TRANSFERASE 31 U/L (14-36); BILIRUBIN,DIRECT 0.4 mg/dL (0.0-0.4); BILIRUBIN,TOTAL 0.7 mg/dL (0.2-1.3); CHOLESTEROL 148.03 mg/dL (0-200); TOTAL PROTEIN 6.9 g/dL (6.3-8.2); TRIGLYCERIDES 77 mg/dL (<150)
[2017-06-07 09:27] LABS: DIRECT LDL 47 mg/dL (<100)
== END ==
LOC: OD 08:18
PROVIDERS: ATTEND Family Medicine
DX: E03.9 Hypothyroidism, unspecified (principal); E78.5 Hyperlipidemia, unspecified; E11.9 Type 2 diabetes mellitus without complications; Z79.899 Other long term (current) drug therapy
CPT/HCPCS: 36415; 80061; 80076; 82150; 83036; 84436; 84443

== ENCOUNTER 2017-08-18 21:45 | Emergency (ER) | payer MEDICARE, OTHER ==
[2017-08-18] MEDS ORDERED: ASPIRIN 81 MG TABLET, CHEWABLE PO ONE (22:19)
[2017-08-18] MEDS ORDERED: NORMAL SALINE 1000 ML 1,000 ML IV ONE (22:20)
--- NOTE | 2017-08-18 22:40 | ER Document Report ---
ED General - General Chief Complaint: Chest Pain Stated Complaint: CHEST PAIN Time Seen by Provider: 08/18/17 22:18 Information source: Patient, Relative - daughter TRAVEL OUTSIDE OF THE [place] IN LAST 30 DAYS: No - HPI Patient complains to provider of: 'I can't breathe" Onset: This afternoon Onset/Duration: Gradual, Persistent Quality of pain: No pain Notes: Pt. states she was at her grandson's graduation outside today and sat in the shade. She states she became SOB and when this usually happens she takes her carb/levo Parkinson's medication and the SOB is relieved. Today it persisted and she left the graduation early. She went home and it continued so she came here for evaluation. pt. denies any chest pain today. Patient's daughter states that patient does have bouts of anxiety. - Related Data Allergies/Adverse Reactions: Sulfa (Sulfonamide Antibiotics) Allergy (Verified 08/18/17 21:47) Hives Past Medical History - General Information source: Patient, Relative - Social History Smoking Status: Never Smoker Chew tobacco use (# tins/day): No Frequency of alcohol use: None Drug Abuse: None Lives with: Family - Family History: Reviewed & Not Pertinent Patient has suicidal ideation: No Patient has homicidal ideation: No - Past Medical History Cardiac Medical History: Reports: Hx Hypertension Pulmonary Medical History: Reports: None EENT Medical History: Reports: None Neurological Medical History: Reports: Other - Tia Endocrine Medical History: Reports: Hx Diabetes Mellitus Type 1, Hx Diabetes Mellitus Type 2, Hx Hypothyroidism Renal/ Medical History: Reports: None. Denies: Hx Peritoneal Dialysis GI Medical History: Musculoskeltal Medical History: Reports Hx Arthritis Psychiatric Medical History: Reports: Hx Anxiety Traumatic Medical History: Reports: None Infectious Medical History: Past Surgical History: Reports: Hx Appendectomy, Hx Section, Hx Neurologic Surgery - CARPAL TUNNEL, Hx Orthopedic Surgery - BACK SURGERY. CARPAL TUNNEL RELEASE. - Immunizations Hx Diphtheria, Pertussis, Tetanus Vaccination: Yes Review of Systems - Review of Systems Constitutional: No symptoms reported EENT: No symptoms reported Cardiovascular: No symptoms reported Respiratory: Short of breath Gastrointestinal: No symptoms reported Genitourinary: No symptoms reported Musculoskeletal: No symptoms reported Hematologic/Lymphatic: No symptoms reported Neurological/Psychological: No symptoms reported Physical Exam - Vital signs Vitals: Resp Pulse Ox 18 97 08/18/17 22:43 08/18/17 22:43 - Notes Notes: PHYSICAL EXAMINATION: GENERAL: Well-appearing, well-nourished and in no acute distress. Mildly anxious appearing. HEAD: Atraumatic, normocephalic. EYES: Pupils equal round and reactive to light, extraocular movements intact, conjunctiva are normal. ENT: Nares patent, oropharynx clear without exudates. Moist mucous membranes. NECK: Normal range of motion, supple without lymphadenopathy LUNGS: Breath sounds clear to auscultation bilaterally and equal. No wheezes rales or rhonchi. HEART: Regular rate and rhythm without murmurs ABDOMEN: Soft, nontender, nondistended abdomen. No guarding, no rebound. No masses appreciated. Female : deferred Musculoskeletal: Normal range of motion, no pitting or edema. No cyanosis. NEUROLOGICAL: Cranial nerves grossly intact. Normal speech. Normal sensory, motor exams PSYCH: Normal mood, normal affect. SKIN: Warm, Dry, normal turgor, no rashes or lesions noted. Course - Re-evaluation Re-evalutation: 08/18/17 23:41 Labs- All tests 24 hr 08/18/17 08/18/17 08/18/17 22:51 22:51 22:51 WBC 6.7 RBC 5.55 H Hgb 11.4 L Hct 35.9 L MCV 65 L MCH 20.5 L MCHC 31.7 L RDW 16.3 H Plt Count 293 Seg Neutrophils % 64.6 Lymphocytes % 21.1 Monocytes % 11.0 Eosinophils % 2.2 Basophils % 1.1 Absolute Neutrophils 4.3 Absolute Lymphocytes 1.4 Absolute Monocytes 0.7 Absolute Eosinophils 0.1 Absolute Basophils 0.1 Platelet Comment ADEQUATE Poikilocytosis SLIGHT Anisocytosis 1+ Microcytosis 3+ Target Cells SLIGHT Ovalocytes SLIGHT Sodium 140.3 Potassium 4.3 Chloride 103 Carbon Dioxide 25 Anion Gap 12 BUN 15 Creatinine 0.80 Est GFR ( Amer) > 60 Est GFR (Non-Af Amer) > 60 Glucose 143 H Calcium 10.2 Total Bilirubin 0.5 Direct Bilirubin 0.3 Neonat Total Bilirubin Not Reportable Neonat Direct Bilirubin Not Reportable Neonat Indirect Bili Not Reportable AST 37 H ALT 22 Alkaline Phosphatase 58 Troponin I < 0.012 Total Protein 7.7 Albumin 4.7 - Vital Signs Vital signs: Temp Pulse Resp BP Pulse Ox 80 22 H 164/66 H 98 08/18/17 22:45 08/18/17 23:01 08/18/17 23:01 08/18/17 23:01 - Laboratory Result Diagrams: 08/18/17 22:51 08/18/17 22:51 Laboratory results interpreted by me: 08/18/17 08/18/17 22:51 22:51 RBC 5.55 H Hgb 11.4 L Hct 35.9 L MCV 65 L MCH 20.5 L MCHC 31.7 L RDW 16.3 H Glucose 143 H AST 37 H - Diagnostic Test Radiology reviewed: Image reviewed - EKG Interpretation by Me EKG shows normal: Sinus rhythm - 86 Rhythm: NSR Discharge - Discharge Clinical Impression: Shortness of breath, Parkinson disease Condition: Stable Disposition: HOME, SELF-CARE Additional Instructions: Return to the emergency department if symptoms return. Referrals: CHARISMA CRUZ MD [Primary Care Provider] - Follow up in 3-5 days
[2017-08-18 23:12] LABS: ABSOLUTE BASOPHILS # (AUTO) 0.1 10^3/uL (0.0-0.2); ABSOLUTE EOSINOPHILS # (AUTO) 0.1 10^3/uL (0.0-0.6); ABSOLUTE LYMPHOCYTES (AUTO) 1.4 10^3/uL (0.5-4.7); ABSOLUTE MONOCYTES (AUTO) 0.7 10^3/uL (0.1-1.4); ABSOLUTE NEUT (AUTO) 4.3 10^3/uL (1.7-8.2); BASOPHILS % (AUTO) 1.1 % (0-2); EOSINOPHILS % (AUTO) 2.2 % (0-6); HEMATOCRIT 35.9 % (36.0-47.0); HEMOGLOBIN 11.4 g/dL (12.0-15.5); LYMPHOCYTES % (AUTO) 21.1 % (13-45); MEAN CORPUSCULAR HEMOGLOBIN 20.5 pg (27.0-33.4); MEAN CORPUSCULAR HGB CONC 31.7 g/dL (32.0-36.0); PLATELET COUNT 293 10^3/uL (150-450); RED BLOOD COUNT 5.55 10^6/uL (3.72-5.28); RED CELL DISTRIBUTION WIDTH 16.3 % (11.5-14.0); SEGMENTED NEUTROPHILS % (AUTO) 64.6 % (42-78); TOTAL CELLS COUNTED % (AUTO) 100 %; WHITE BLOOD COUNT 6.7 10^3/uL (4.0-10.5)
[2017-08-18 23:22] LABS: ALANINE AMINOTRANSFERASE 22 U/L (9-52); ALBUMIN 4.7 g/dL (3.5-5.0); ALKALINE PHOSPHATASE 58 U/L (38-126); ANION GAP 12 (5-19); ASPARTATE AMINO TRANSFERASE 37 U/L (14-36); BILIRUBIN,DIRECT 0.3 mg/dL (0.0-0.4); BILIRUBIN,TOTAL 0.5 mg/dL (0.2-1.3); BLOOD UREA NITROGEN 15 mg/dL (7-20); CALCIUM 10.2 mg/dL (8.4-10.2); CARBON DIOXIDE 25 mmol/L (22-30); CHLORIDE 103 mmol/L (98-107); GLUCOSE 143 mg/dL (75-110); POTASSIUM 4.3 mmol/L (3.6-5.0); SODIUM 140.3 mmol/L (137-145); TOTAL PROTEIN 7.7 g/dL (6.3-8.2)
[2017-08-18 23:28] LABS: MEAN CORPUSCULAR VOLUME 65 fl (80-97)
[2017-08-18 23:31] LABS: ANISOCYTOSIS 1+; OVALOCYTES SLIGHT; PLATELET COMMENT ADEQUATE; TARGET CELLS SLIGHT
[2017-08-18 23:33] LABS: POIKILOCYTOSIS SLIGHT
--- NOTE | 2017-08-18 23:57 | RADIOLOGY REPORT (SQ) ---
EXAM DESCRIPTION: XR CHEST 1 VIEW CLINICAL HISTORY: 72 years Female, cp COMPARISON: 4..17 NUMBER OF VIEWS/TECHNIQUE: 1/AP FINDINGS: Adequate lung volume, clear parenchyma, normal cardiac silhouette, and intact bony thorax. IMPRESSION: No acute cardiopulmonary findings.
[2017-08-19 00:21] VITALS: BP 139/56
--- NOTE | 2017-08-19 07:38 | EKG REPORT ---
SEVERITY:- NORMAL ECG - SINUS RHYTHM : Confirmed by: Lupillo Murray MD 19-Aug-2017 07:38:01
[2017-08-20 15:35] LABS: PATH REVIEW PATHOLOGIST REVIEWED
== END 2017-08-19 00:20 | disposition home or self-care (01) ==
LOC: ER 21:45
DX: R06.02 Shortness of breath (principal); G20 Parkinson's disease; R07.9 Chest pain, unspecified; Z79.899 Other long term (current) drug therapy; I10 Essential (primary) hypertension; E11.9 Type 2 diabetes mellitus without complications
CPT/HCPCS: 93005; 99285; 96360; 36415; 85025; 80053; 84484; 71045; 93010; J7030

== ENCOUNTER → 2018-01-10 | Outpatient (CLI) | payer MEDICARE, OTHER ==
[2018-01-11 11:40] LABS: CREATININE URINE 124.2 mg/dL (Not Estab.); MICROALBUMIN URINE 116.8 ug/mL (Not Estab.)
== END ==
LOC: OD 08:11
PROVIDERS: ATTEND Family Medicine
DX: E11.65 Type 2 diabetes mellitus with hyperglycemia (principal)
CPT/HCPCS: 36415; 82043; 82570; 83036

== ENCOUNTER 2018-03-17 09:32 | Emergency (ER) | payer MEDICARE, OTHER ==
--- NOTE | 2018-03-17 10:33 | EKG REPORT ---
SEVERITY:- NORMAL ECG - SINUS RHYTHM : Confirmed by: Joslyn Pendleton 17-Mar-2018 10:32:19
[2018-03-17] MEDS ORDERED: ASPIRIN 81 MG TABLET, CHEWABLE PO ONE (10:36)
--- NOTE | 2018-03-17 10:45 | ER Document Report ---
ED General - General Chief Complaint: Shortness Of Breath Stated Complaint: DIFFICULTY BREATHING Time Seen by Provider: 03/17/18 10:05 Information source: Patient, Relative, [facility] Records Notes: 73-year-old female with Parkinson, hypertension, type 1 diabetes, hypothyroidism presents with complaint of shortness of breath and chest tightness. Patient states that approximately 12 hours prior to arrival she experienced shortness of breath, palpitations that lasted throughout the night. Patient denies any associated diaphoresis, lightheadedness, nausea, vomiting , fever, cough. Patient does have a remote history of PE after a back surgery several years ago. She currently takes aspirin and no other blood thinning medications. She denies any recent surgery, recent travel, estrogen use, lower extremity swelling. Patient does report a intermittent nonproductive cough. Patient denies any current shortness of breath, chest pain. She states that she came in this morning because she was up all night concerned that she would " and he would not know". She does report a history of anxiety but cannot identify any specific stressors that could have caused this. TRAVEL OUTSIDE OF THE [place] IN LAST 30 DAYS: No - HPI Onset: Yesterday Onset/Duration: Sudden, Gone Quality of pain: No pain Severity: Moderate Associated symptoms: Nonproductive cough, Shortness of breath. denies: Chest pain, Productive cough, Fever, Headache, Hurts to breath, Nausea, Vomiting, Sweating Exacerbated by: Denies Relieved by: Denies Similar symptoms previously: Yes Recently seen / treated by doctor: No - Related Data Allergies/Adverse Reactions: Sulfa (Sulfonamide Antibiotics) Allergy (Verified 08/18/17 21:47) Hives Past Medical History - General Information source: Patient, Relative, [facility] Records - Social History Smoking Status: Never Smoker Frequency of alcohol use: None Drug Abuse: None Lives with: Spouse/Significant other Family History: Reviewed & Not Pertinent Patient has suicidal ideation: No Patient has homicidal ideation: No - Past Medical History Cardiac Medical History: Reports: Hx Hypertension Pulmonary Medical History: Neurological Medical History: Endocrine Medical History: Reports: Hx Diabetes Mellitus Type 1, Hx Diabetes Mellitus Type 2, Hx Hypothyroidism Renal/ Medical History: Denies: Hx Peritoneal Dialysis GI Medical History: Musculoskeletal Medical History: Reports Hx Arthritis Psychiatric Medical History: Reports: Hx Anxiety Infectious Medical History: Past Surgical History: Reports: Hx Appendectomy, Hx Section, Hx Neurologic Surgery - CARPAL TUNNEL, Hx Orthopedic Surgery - BACK SURGERY. CARPAL TUNNEL RELEASE. - Immunizations Hx Diphtheria, Pertussis, Tetanus Vaccination: Yes Review of Systems - Review of Systems Constitutional: denies: Fever, Weakness, Recent illness EENT: denies: Blurred vision, Throat pain, Difficulty swallowing Cardiovascular: Palpitations. denies: Chest pain, Dizziness, Lightheaded Respiratory: Cough, Short of breath. denies: Wheezing Gastrointestinal: Abdominal pain - chronic, Constipation. denies: Diarrhea, Poor appetite, Poor fluid intake Genitourinary: denies: Dysuria, Flank pain Female Genitourinary: No symptoms reported Musculoskeletal: Back pain - chronic Skin: denies: Rash Hematologic/Lymphatic: Blood clots - Remote Neurological/Psychological: denies: Confusion, Weakness, Headaches -: Yes All other systems reviewed and negative Physical Exam - Vital signs Vitals: Temp Pulse Resp BP Pulse Ox 97.7 F 73 20 153/55 H 100 03/17/18 09:37 03/17/18 09:37 03/17/18 09:37 03/17/18 09:37 03/17/18 09:37 Interpretation: Hypertensive - Notes Notes: PHYSICAL EXAMINATION: GENERAL: Anxious, well-appearing, well-nourished and in no acute distress. HEAD: Atraumatic, normocephalic. EYES: Pupils equal round and reactive to light, extraocular movements intact, conjunctiva are normal. ENT: Nares patent, oropharynx clear without exudates. Moist mucous membranes. NECK: Normal range of motion, supple without lymphadenopathy LUNGS: Breath sounds clear to auscultation bilaterally and equal. No wheezes rales or rhonchi. HEART: Regular rate and rhythm without murmurs ABDOMEN: Soft, nontender, nondistended abdomen. No guarding, no rebound. No masses appreciated. Female : deferred Musculoskeletal: Normal range of motion, no pitting or edema. No cyanosis. NEUROLOGICAL: Cranial nerves grossly intact. Normal speech, normal gait. Normal sensory, motor exams PSYCH: Normal mood, normal affect. SKIN: Warm, Dry, normal turgor, no rashes or lesions noted. Course - Re-evaluation Re-evalutation: Laboratory 03/17/18 03/17/18 03/17/18 10:20 10:20 10:20 WBC 6.6 RBC 5.05 Hgb 10.5 L Hct 33.2 L MCV 66 L MCH 20.9 L MCHC 31.8 L RDW 16.5 H Plt Count 278 Seg Neutrophils % 69.7 Lymphocytes % 20.9 Monocytes % 7.4 Eosinophils % 1.2 Basophils % 0.8 Absolute Neutrophils 4.6 Absolute Lymphocytes 1.4 Absolute Monocytes 0.5 Absolute Eosinophils 0.1 Absolute Basophils 0.1 PT INR D-Dimer VBG pH VBG pCO2 VBG HCO3 VBG Base Excess Sodium 141.7 Potassium 4.0 Chloride 103 Carbon Dioxide 30 Anion Gap 9 BUN 19 Creatinine 0.66 Est GFR ( Amer) > 60 Est GFR (Non-Af Amer) > 60 Glucose 144 H Calcium 9.2 Total Bilirubin 0.5 Direct Bilirubin 0.2 Neonat Total Bilirubin Not Reportable Neonat Direct Bilirubin Not Reportable Neonat Indirect Bili Not Reportable AST 44 H ALT 6 L Alkaline Phosphatase 48 Creatine Kinase 97 CK-MB (CK-2) 2.35 Troponin I < 0.012 Total Protein 7.0 Albumin 4.0 Urine Color Urine Appearance Urine pH Ur Specific Dexter Urine Protein Urine Glucose (UA) Urine Ketones Urine Blood Urine Nitrite Urine Bilirubin Urine Urobilinogen Ur Leukocyte Esterase Urine WBC (Auto) Urine RBC (Auto) Squamous Epi Cells Auto Urine Mucus (Auto) Urine Ascorbic Acid 03/17/18 03/17/18 03/17/18 10:20 10:20 10:50 WBC RBC Hgb Hct MCV MCH MCHC RDW Plt Count Seg Neutrophils % Lymphocytes % Monocytes % Eosinophils % Basophils % Absolute Neutrophils Absolute Lymphocytes Absolute Monocytes Absolute Eosinophils Absolute Basophils PT 13.4 INR 0.97 D-Dimer 0.55 H VBG pH 7.38 VBG pCO2 51.1 VBG HCO3 29.3 VBG Base Excess 3.4 Sodium Potassium Chloride Carbon Dioxide Anion Gap BUN Creatinine Est GFR ( Amer) Est GFR (Non-Af Amer) Glucose Calcium Total Bilirubin Direct Bilirubin Neonat Total Bilirubin Neonat Direct Bilirubin Neonat Indirect Bili AST ALT Alkaline Phosphatase Creatine Kinase CK-MB (CK-2) Troponin I Total Protein Albumin Urine Color YELLOW Urine Appearance CLEAR Urine pH 5.0 Ur Specific Dexter 1.020 Urine Protein 30 H Urine Glucose (UA) NEGATIVE Urine Ketones TRACE H Urine Blood NEGATIVE Urine Nitrite NEGATIVE Urine Bilirubin NEGATIVE Urine Urobilinogen NEGATIVE Ur Leukocyte Esterase NEGATIVE Urine WBC (Auto) 1 Urine RBC (Auto) 1 Squamous Epi Cells Auto <1 Urine Mucus (Auto) RARE Urine Ascorbic Acid 20 H 03/17/18 13:50 WBC RBC Hgb Hct MCV MCH MCHC RDW Plt Count Seg Neutrophils % Lymphocytes % Monocytes % Eosinophils % Basophils % Absolute Neutrophils Absolute Lymphocytes Absolute Monocytes Absolute Eosinophils Absolute Basophils PT INR D-Dimer VBG pH VBG pCO2 VBG HCO3 VBG Base Excess Sodium Potassium Chloride Carbon Dioxide Anion Gap BUN Creatinine Est GFR ( Amer) Est GFR (Non-Af Amer) Glucose Calcium Total Bilirubin Direct Bilirubin Neonat Total Bilirubin Neonat Direct Bilirubin Neonat Indirect Bili AST ALT Alkaline Phosphatase Creatine Kinase CK-MB (CK-2) Troponin I < 0.012 Total Protein Albumin Urine Color Urine Appearance Urine pH Ur Specific Dexter Urine Protein Urine Glucose (UA) Urine Ketones Urine Blood Urine Nitrite Urine Bilirubin Urine Urobilinogen Ur Leukocyte Esterase Urine WBC (Auto) Urine RBC (Auto) Squamous Epi Cells Auto Urine Mucus (Auto) Urine Ascorbic Acid Chest X-Ray 03/17/18 10:39 IMPRESSION: No acute abnormality of the lungs. No focal airspace opacity. Chest/Abdomen CTA 03/17/18 11:52 IMPRESSION: NORMAL CTA OF THE CHEST. NO PULMONARY EMBOLI. Temp Pulse Resp BP Pulse Ox 97.7 F 76 19 110/72 100 03/17/18 15:30 03/17/18 15:30 03/17/18 15:30 03/17/18 15:30 03/17/18 15:30 73-year-old female with Parkinson, hypertension, type 1 diabetes, hypothyroidism presents with complaint of shortness of breath. Patient states that approximately 12 hours prior to arrival she experienced shortness of breath , palpitations that lasted throughout the night. Patient denies any associated chest pain, diaphoresis, lightheadedness, nausea, vomiting, fever. Patient does have a remote history of PE after a back surgery several years ago. She currently takes aspirin and no other blood thinning medications. Upon arrival vital signs were reviewed and patient is afebrile, normotensive and not hypoxic. She is in no acute distress. She does not appear toxic or dehydrated. She is very anxious. Denies any chest pain. Patient has no accessory muscle use, she is able to speak in full sentences. Except for a minor tremor in her left hand secondary to Parkinson disease she has a normal physical exam. Chest x-ray showed no acute abnormality. CTA showed no evidence of PE. CBC is without leukocytosis but does show an anemia which is her baseline. Cardiac enzymes were obtained and within normal limits. Delta troponin negative. CMP, lipase, VBG unremarkable. Patient did receive 0.5 mg of IV Ativan. On reevaluation she is resting verbally. She states her dyspnea has resolved. She is requesting discharge home. Patient was evaluated and treated as appropriate for the patient's presenting symptoms and complaint, with consideration of any critical or life threatening conditions that may be associated with their obtained history and exam as noted above. All results were discussed with patient and her . Patient provided the opportunity to ask questions, and express concerns. Patient was educated on treatments based on their presumed diagnosis as noted above. At this time we will discharge the patient with return precautions and follow-up recommendations. Verbal discharge instructions given a the bedside. Medication warnings reviewed. Patient is in agreement with this plan and has verbalized understanding of return precautions. After careful consideration I feel that that patient can be safely discharged from the emergency department, they were advised to followup with a primary care physician in 2-3 days. Dictation on this chart was performed using voice recognition software and may result in unintended grammatical, spelling, syntax or errors. 03/17/18 13:43 Patient reevaluated. States that she is feeling better. Chest pain and shortness of breath resolved after receiving 0.5 mg of Ativan. Initial cardiac workup within normal limits. CTA negative for PE. Delta. troponin pending. 03/17/18 18:07 - Vital Signs Vital signs: Temp Pulse Resp BP Pulse Ox 97.7 F 76 19 110/72 100 03/17/18 15:30 03/17/18 15:30 03/17/18 15:30 03/17/18 15:30 03/17/18 15:30 - Laboratory Result Diagrams: 03/17/18 10:20 03/17/18 10:20 Laboratory results interpreted by me: 03/17/18 03/17/18 03/17/18 10:20 10:20 10:20 Hgb 10.5 L Hct 33.2 L MCV 66 L MCH 20.9 L MCHC 31.8 L RDW 16.5 H D-Dimer 0.55 H Glucose 144 H AST 44 H ALT 6 L Urine Protein Urine Ketones Urine Ascorbic Acid 03/17/18 10:50 Hgb Hct MCV MCH MCHC RDW D-Dimer Glucose AST ALT Urine Protein 30 H Urine Ketones TRACE H Urine Ascorbic Acid 20 H - Diagnostic Test Radiology reviewed: Image reviewed, Reports reviewed - EKG Interpretation by Me EKG shows normal: Sinus rhythm Rate: Normal Rhythm: NSR When compared to previous EKG there are: No significant change Discharge - Discharge Clinical Impression: History of anxiety, Palpitations Dyspnea Qualifiers: Dyspnea type: unspecified Qualified Code(s): R06.00 - Dyspnea, unspecified Chest pain Qualifiers: Chest pain type: unspecified Qualified Code(s): R07.9 - Chest pain, unspecified Condition: Good Disposition: HOME, SELF-CARE Instructions: Anxiety ([facility]), Chest Pain of Unclear Cause ([facility]), Dyspnea, Nonspecific ([facility]) Additional Instructions: You were seen today for chest pain. The exact cause of your pain is unclear. However, based on your cardiac enzyme testing, chest x-ray, and EKG it does not appear that it is from an immediately life-threatening cause at this time. Although your testing here is normal is critical that you follow-up with your primary care physician for continued evaluation of this chest pain and possible stress testing. I recommended you see your physician within the next 24-48 hours to be evaluated for consideration of a stress test. Please return to emergency department immediately if you have worsening of your chest pain, shortness of breath, vomiting, become unable to exert yourself due to pain or difficulty breathing, you pass out, or have any pain that radiates into your arms, jaw, or back. Please also return if you have any additional symptoms that are concerning to you. Referrals: CHARISMA CRUZ MD [Primary Care Provider] - Follow up tomorrow
--- NOTE | 2018-03-17 10:47 | EKG REPORT ---
SEVERITY:- NORMAL ECG - SINUS RHYTHM : Confirmed by: Joslyn Pendleton 17-Mar-2018 10:47:09
[2018-03-17] MEDS ORDERED: IPRATROPIUM/ALBUTEROL 0.5-2.5 MG/3 ML AMPUL NEB ONE (10:52)
[2018-03-17 11:04] LABS: INTERNATIONAL RATION (INR) 0.97; PROTHROMBIN TIME 13.4 SEC (11.4-15.4)
[2018-03-17 11:07] LABS: D-DIMER 0.55 ug/mL (0.00-0.50)
[2018-03-17 11:09] LABS: APPEARANCE,URINE CLEAR; BILIRUBIN,URINE NEGATIVE (NEGATIVE); COLOR,URINE YELLOW; GLUCOSE, URINE NEGATIVE (NEGATIVE); KETONES,URINE TRACE mg/dL (NEGATIVE); LEUKOCYTE ESTERASE,URINE NEGATIVE (NEGATIVE); NITRITE,URINE NEGATIVE (NEGATIVE); PROTEIN,URINE 30 mg/dL (NEGATIVE); UROBILINOGEN,URINE NEGATIVE mg/dL (<2.0)
[2018-03-17 11:11] LABS: VENOUS BLOOD BASE EXCESS 3.4 mmol/L; VENOUS BLOOD HCO3 29.3 mmol/L (20-32); VENOUS BLOOD PCO2 51.1 mmHg (35-63); VENOUS BLOOD PH 7.38 (7.30-7.42)
[2018-03-17 11:12] LABS: ABSOLUTE BASOPHILS # (AUTO) 0.1 10^3/uL (0.0-0.2); ABSOLUTE EOSINOPHILS # (AUTO) 0.1 10^3/uL (0.0-0.6); ABSOLUTE LYMPHOCYTES (AUTO) 1.4 10^3/uL (0.5-4.7); ABSOLUTE MONOCYTES (AUTO) 0.5 10^3/uL (0.1-1.4); ABSOLUTE NEUT (AUTO) 4.6 10^3/uL (1.7-8.2); BASOPHILS % (AUTO) 0.8 % (0-2); EOSINOPHILS % (AUTO) 1.2 % (0-6); HEMATOCRIT 33.2 % (36.0-47.0); HEMOGLOBIN 10.5 g/dL (12.0-15.5); LYMPHOCYTES % (AUTO) 20.9 % (13-45); MEAN CORPUSCULAR HEMOGLOBIN 20.9 pg (27.0-33.4); MEAN CORPUSCULAR HGB CONC 31.8 g/dL (32.0-36.0); MEAN CORPUSCULAR VOLUME 66 fl (80-97); MONOCYTES % (AUTO) 7.4 % (3-13); PLATELET COUNT 278 10^3/uL (150-450); RED BLOOD COUNT 5.05 10^6/uL (3.72-5.28); RED CELL DISTRIBUTION WIDTH 16.5 % (11.5-14.0); SEGMENTED NEUTROPHILS % (AUTO) 69.7 % (42-78); TOTAL CELLS COUNTED % (AUTO) 100 %; WHITE BLOOD COUNT 6.6 10^3/uL (4.0-10.5)
[2018-03-17 11:17] LABS: ALANINE AMINOTRANSFERASE 6 U/L (9-52); ALKALINE PHOSPHATASE 48 U/L (38-126); ANION GAP 9 (5-19); ASPARTATE AMINO TRANSFERASE 44 U/L (14-36); BILIRUBIN,DIRECT 0.2 mg/dL (0.0-0.4); BILIRUBIN,TOTAL 0.5 mg/dL (0.2-1.3); BLOOD UREA NITROGEN 19 mg/dL (7-20); CALCIUM 9.2 mg/dL (8.4-10.2); CARBON DIOXIDE 30 mmol/L (22-30); CHLORIDE 103 mmol/L (98-107); CREATINE KINASE 97 U/L (30-135); GLUCOSE 144 mg/dL (75-110); SODIUM 141.7 mmol/L (137-145)
--- NOTE | 2018-03-17 11:23 | RADIOLOGY REPORT (SQ) ---
EXAM DESCRIPTION: CHEST 2 VIEWS COMPLETED DATE/TIME: 03/17/2018 11:15 am REASON FOR STUDY: sob COMPARISON: 07/18/2016 EXAM PARAMETERS: NUMBER OF VIEWS: two views TECHNIQUE: Digital Frontal and Lateral radiographic views of the chest acquired. RADIATION DOSE: NA LIMITATIONS: none FINDINGS: LUNGS AND PLEURA: No opacities, masses or pneumothorax. No pleural effusion. MEDIASTINUM AND HILAR STRUCTURES: No masses or contour abnormalities. HEART AND VASCULAR STRUCTURES: Heart normal size. No evidence for failure. BONES: Disc degenerative disease of the thoracic spine. HARDWARE: None in the chest. OTHER: No other significant finding. IMPRESSION: No acute abnormality of the lungs. No focal airspace opacity. TECHNICAL DOCUMENTATION: JOB ID: [id number] [employer]- All Rights Reserved Reading location - IP/workstation name: [email or web address]
[2018-03-17 11:29] LABS: CREATINE KINASE MB 2.35 ng/mL (<4.55)
[2018-03-17 11:31] LABS: TROPONIN I < 0.012 ng/mL
[2018-03-17] MEDS ORDERED: LORAZEPAM INJ 2 MG/1 ML VIAL IV ONE (11:51)
--- NOTE | 2018-03-17 13:16 | RADIOLOGY REPORT (SQ) ---
EXAM DESCRIPTION: CTA CHEST COMPLETED DATE/TIME: 03/17/2018 12:50 pm REASON FOR STUDY: sob COMPARISON: None. TECHNIQUE: CT scan of the chest performed using helical scanning technique with dynamic intravenous contrast injection. Images reviewed with lung, soft tissue and bone windows. Reconstructed coronal and sagittal MPR images reviewed. Additional 3 dimensional post-processing performed to develop Maximal Intensity Projection images (TX P). All images stored on PACS. All CT scanners at this facility use dose modulation, iterative reconstruction, and/or weight based d osing when appropriate to reduce radiation dose to as low as reasonably achievable (ALARA). [facility]: Dose Right [facility]: CareDose [facility]: Dose Right [facility]: Teradose 4D [facility]: [employer] Technologies CONTRAST TYPE AND DOSE: Not recorded not recorded Contrast bolus optimized for the pulmonary arteries. Not diagnostic for the aorta. RENAL FUNCTION: GFR > 60. RADIATION DOSE: CT Rad equipment meets quality standard of care and radiation dose reduction techniq ues were employed. CTDIvol: 18.0 - 24.8 mGy. DLP: 636 mGy-cm. . LIMITATIONS: None. FINDINGS: LUNGS AND PLEURA: No masses, infiltrates, or pneumothorax. No pleural effusions or pleura l calcifications. AORTA AND GREAT VESSELS: No aneurysm. Contrast bolus not optimized for the aorta. HEART: No pericardial effusion. No significant coronary artery calcifications. PULMONARY ARTERIES: No emboli visualized in the main pulmonary arteries or the segmental branches. HILAR AND MEDIASTINAL STRUCTURES: No identified masses or abnormal nodes. HARDWARE: None in the chest. UPPER ABDOMEN: No significant findings. Limited exam. THYROID AND OTHER SOFT TISSUES: No masses. No adenopathy. BONES: No acute or significant finding. 3D MIPS: Confirm above findings. OTHER: No other significant finding. IMPRESSION: NORMAL CTA OF THE CHEST. NO PULMONARY EMBOLI. COMMENT: Quality ID # [id number]: Final reports with documentation of one or more dose reduction techniques (e.g., Automated exposure control, adjustment of the mA and/or kV according to patient size, use of iterative reconstruction technique) TECHNICAL DOCUMENTATION: JOB ID: [id number] [employer]- All Rights Reserved Reading location - IP/workstation name: [email or web address]
[2018-03-17 15:46] VITALS: BP 110/72
== END 2018-03-17 15:30 | disposition home or self-care (01) ==
LOC: ER 09:32
DX: R07.9 Chest pain, unspecified (principal); R06.00 Dyspnea, unspecified; F41.9 Anxiety disorder, unspecified; R00.2 Palpitations; I10 Essential (primary) hypertension; E10.9 Type 1 diabetes mellitus without complications; G20 Parkinson's disease; R05 Cough
CPT/HCPCS: 93005; 94640; 99285; 96374; 36415; 82553; 82550; 85025; 85610; 80053; 81001; 84484; 85379; 82803; 71046; 71275; 93010; A9270 ×2; J2060; J7620

== ENCOUNTER → 2018-05-24 | Outpatient (CLI) | payer MEDICARE, OTHER ==
--- NOTE | 2018-05-24 14:49 | RADIOLOGY REPORT (SQ) ---
EXAM DESCRIPTION: MRI HEAD COMBO COMPLETED DATE/TIME: 05/24/2018 1:41 pm REASON FOR STUDY: DIPLOPIA H53.2 DIPLOPIA COMPARISON: 01/18/2015, CT head dated 07/18/2016 TECHNIQUE: Multiplanar imaging includes noncontrasted T1, T2, FLAIR, and Diffusion with ADC map seq uences. Contrast enhanced T1 images. Images stored on PACS. CONTRAST TYPE AND DOSE: 15 mL Dotarem. RENAL FUNCTION: GFR greater than 60 LIMITATIONS: None. FINDINGS: ANATOMY: No anomalies. Normal vascular flow voids. Pituitary fossa normal. CSF SPACES: Normal size and contour. No hemorrhage. CEREBRUM: A few high-signal intensity lesions scattered throughout the white matter on FLAIR imaging with distribution suggesting chronic microvascular ischemic change. Sulci and gyri normal in size and contour. No evidence of hemorrhage, mass or extraaxial fluid collection. No enhancing lesions. POSTERIOR FOSSA: No signal alteration. No hemorrhage. No edema, masses or mass effect. Internal audit ory canals, cerebello-pontine angles, mastoids normal. DIFFUSION: Negative for acute or subacute infarction. ORBITS: No masses. Globes normal. PARANASAL SINUSES: No fluid levels. Mucosa normal. OTHER: No other significant finding. IMPRESSION: NO ENHANCING LESIONS. MINIMAL MICROVASCULAR ISCHEMIC CHANGE. OTHERWISE NORMAL STUDY. EVIDENCE OF ACUTE STROKE: NO. TECHNICAL DOCUMENTATION: JOB ID: [id number] [employer]- All Rights Reserved Reading location - IP/workstation name: [email or web address]
== END ==
LOC: RAD 11:44
PROVIDERS: ATTEND Internal Medicine
DX: H53.2 Diplopia (principal)
CPT/HCPCS: 82565; 70553; A9576

== ENCOUNTER → 2018-05-29 | Outpatient (CLI) | payer MEDICARE, OTHER ==
[2018-05-29 08:27] LABS: ABSOLUTE BASOPHILS # (AUTO) 0.1 10^3/uL (0.0-0.2); ABSOLUTE EOSINOPHILS # (AUTO) 0.3 10^3/uL (0.0-0.6); ABSOLUTE LYMPHOCYTES (AUTO) 2.4 10^3/uL (0.5-4.7); ABSOLUTE MONOCYTES (AUTO) 0.6 10^3/uL (0.1-1.4); ABSOLUTE NEUT (AUTO) 2.9 10^3/uL (1.7-8.2); BASOPHILS % (AUTO) 0.9 % (0-2); EOSINOPHILS % (AUTO) 4.4 % (0-6); HEMOGLOBIN 10.9 g/dL (12.0-15.5); LYMPHOCYTES % (AUTO) 38.8 % (13-45); MEAN CORPUSCULAR HEMOGLOBIN 20.9 pg (27.0-33.4); MEAN CORPUSCULAR VOLUME 65 fl (80-97); MONOCYTES % (AUTO) 9.3 % (3-13); PLATELET COUNT 286 10^3/uL (150-450); RED BLOOD COUNT 5.21 10^6/uL (3.72-5.28); RED CELL DISTRIBUTION WIDTH 16.2 % (11.5-14.0); SEGMENTED NEUTROPHILS % (AUTO) 46.6 % (42-78); TOTAL CELLS COUNTED % (AUTO) 100 %; WHITE BLOOD COUNT 6.1 10^3/uL (4.0-10.5)
[2018-05-29 09:24] LABS: ERYTHROCYTE SEDIMENTATION RATE 9 mm/hr (0-30)
== END ==
LOC: OD 08:02
PROVIDERS: ATTEND Internal Medicine
DX: H53.2 Diplopia (principal)
CPT/HCPCS: 36415; 85025; 85652; 86140

== ENCOUNTER 2018-08-23 23:33 | Emergency (ER) | payer OTHER, MEDICARE ==
[2018-08-24] MEDS ORDERED: NORMAL SALINE 500 ML IV PRN (00:42)
--- NOTE | 2018-08-24 00:47 | ER Document Report ---
ED General - General Chief Complaint: Accidental Overdose Stated Complaint: ACCIDENTAL MEDICATION OVERDOSE Time Seen by Provider: 08/24/18 00:27 Primary Care Provider: CHARISMA CRUZ MD [Primary Care Provider] - 08/26/18 Notes: Patient is a 73-year-old female who presents the emergency department with a chief complaint of accidental overdose. She has Parkinson's disease and she takes levodopa/carvidopa every 2 hours as prescribed. She took her 2000 dose of regular nighttime medications, but then subsequently took her morning medications at 2200. She states that she does have a headache, denies any loss of consciousness, dizziness, vomiting, diarrhea, nausea, or any other symptoms at this time. Her current medications include amantadine, levothyroxine, levodopa/carbidopa, atorvastatin, metformin, ramipril, and nuplazid. Her past medical history includes hypothyroidism, hypertension, hyperlipidemia, diabetes, and Parkinson's disease. Patient's sister and niece are at bedside to help with history. TRAVEL OUTSIDE OF THE [place] IN LAST 30 DAYS: No - Related Data Allergies/Adverse Reactions: Sulfa (Sulfonamide Antibiotics) Allergy (Verified 08/18/17 21:47) Hives Past Medical History - General Information source: Patient - Social History Smoking Status: Never Smoker Frequency of alcohol use: None Drug Abuse: None Family History: Reviewed & Not Pertinent Patient has suicidal ideation: No Patient has homicidal ideation: No - Past Medical History Cardiac Medical History: Reports: Hx Hypertension Pulmonary Medical History: Neurological Medical History: Endocrine Medical History: Reports: Hx Diabetes Mellitus Type 1, Hx Diabetes M ellitus Type 2, Hx Hypothyroidism Renal/ Medical History: Denies: Hx Peritoneal Dialysis GI Medical History: Musculoskeletal Medical History: Reports Hx Arthritis Psychiatric Medical History: Reports: Hx Anxiety Infectious Medical History: Past Surgical History: Reports: Hx Appendectomy, Hx Section, Hx Neurologic Surgery - CARPAL TUNNEL, Hx Orthopedic Surgery - BACK SURGERY x2. CARPAL TUNNEL RELEASE. - Immunizations Hx Diphtheria, Pertussis, Tetanus Vaccination: Yes Review of Systems - Review of Systems Notes: REVIEW OF SYSTEMS: CONSTITUTIONAL : Denies recent illness. Denies recent unintentional weight loss. Denies fever, chills, or sweats. EENT: Denies eye, ear, throat, or mouth pain, discharge, or symptoms. Denies nasal or sinus congestion. CARDIOVASCULAR: Denies chest pain. RESPIRATORY: Denies shortness of breath, cough, congestion, difficulty breathing, or wheezing. GASTROINTESTINAL: Denies nausea, vomiting, and diarrhea. Denies abdominal pain. Denies constipation. GENITOURINARY: Denies difficulty urinating, burning, blood in urine, urgency or frequency. MUSCULOSKELETAL: Denies neck and back pain. Denies joint pain or swelling. SKIN: Denies rash, itchiness, or lesions HEMATOLOGIC : Denies easy bruising or bleeding. LYMPHATIC: Denies swollen, painful, enlarged glands. NEUROLOGICAL: See HPI. PSYCHIATRIC: Denies stress, anxiety, alteration in sleep patterns, or depression. All other systems reviewed and negative. Physical Exam - Vital signs Vitals: Temp Pulse Resp BP Pulse Ox 97.2 F 66 16 89/64 L 98 08/23/18 23:41 08/23/18 23:41 08/23/18 23:41 08/23/18 23:41 08/23/18 23:41 - Notes Notes: PHYSICAL EXAMINATION: GENERAL: Appears well, healthy, well-nourished, no acute distress. HEAD: Normocephalic, atraumatic. EYES: PERRL, conjunctiva normal, all extraocular movements intact, sclera abdelrahman cteric ENT: Moist mucous membranes. NECK: Supple, no noticeable swelling, redness, rash. Normal range of motion. LUNGS: Equal breath sounds bilaterally and clear to auscultation. No wheezes rales or rhonchi. CARDIOVASCULAR: S1-S2, regular rate, regular rhythm. Radial pulses 2+, normal. ABDOMEN: Normoactive bowel sounds. Soft, nontender, no guarding, no rebound tenderness, and no masses palpated. EXTREMITIES: Normal strength and range of motion, no pitting or edema. No cyanosis. NEUROLOGICAL: Moves all extremities upon command. Strength 5/5 in all extremities. PSYCH: Normal mood, normal affect. SKIN: Warm, dry. No rash, lesions, ulcerations noted. Normal skin turgor. Course - Re-evaluation Re-evalutation: 08/24/18 01:08 CBC, CMP, CK, CK-MB been ordered at this time. A 12-lead EKG was done and there was no significant changes from her previous EKG. 08/24/18 02:06 Patient's labs are unremarkable at this time. Chemistries are unremarkable. Patient does have a hemoglobin of 8.5, which is due to her chronic thalassemia. There is no QT prolongation noted on her EKG. 08/24/18 02:58 The patient has been hemodynamically stable 7, respiratory rate 20, blood pressure 138/60, oxygen saturation 100% on room air. Patient denies any symptoms. She is anxious to go home, as her is home by himself and he is chronically ill. I have advised the patient's sister, and the patient's niece (who is currently in nursing school) to check her blood pressure in the morning. They are in agreement with this plan. The patient is in agreement with this plan. Patient denies any headache and states that she has had resolution of her headache since she received IV fluids. Verbal discharge instructions were given to the patient. They verbalized understanding. They are stable for discharge. - Vital Signs Vital signs: Temp Pulse Resp BP Pulse Ox 97.6 F 66 21 H 134/58 H 98 08/24/18 03:12 08/23/18 23:41 08/24/18 03:01 08/24/18 03:01 08/24/18 03:01 - Laboratory Result Diagrams: 08/24/18 00:50 08/24/18 00:50 Laboratory results interpreted by me: 08/24/18 08/24/18 00:50 00:50 Hgb 8.5 L Hct 26.6 L MCV 66 L MCH 21.0 L MCHC 31.8 L RDW 17.5 H BUN 29 H - EKG Interpretation by Me Additional EKG results interpreted by me: 08/24/18 Sinus rhythm. Rate 63 NV 216; QRS 80; QT 436; QTC 447. No ST elevations or depressions noted. No significant change from previous EKG dated 03/17/2018. Discharge - Discharge Clinical Impression: Accidental overdose Qualifiers: Encounter type: initial encounter Qualified Code(s): T50.901A - Poisoning by unspecified drugs, medicaments and biological substances, accidental (unintentional), initial encounter Condition: Stable Disposition: HOME, SELF-CARE Additional Instructions: You were seen today in the emergency department after accidentally taking your morning medication at nighttime. Your labs are normal. Please do not take your morning medications this upcoming morning. Please follow-up with your primary care provider on Sunday in regards to this visit. Please have your blood pressure checked in the morning. If you have worsening symptoms, pass out, or have any symptoms worrisome to you, please return to the emergency department. Referrals: CHARISMA CRUZ MD [Primary Care Provider] - 08/26/18
[2018-08-24 01:01] LABS: ABSOLUTE BASOPHILS # (AUTO) 0.1 10^3/uL (0.0-0.2); ABSOLUTE EOSINOPHILS # (AUTO) 0.3 10^3/uL (0.0-0.6); ABSOLUTE LYMPHOCYTES (AUTO) 2.2 10^3/uL (0.5-4.7); ABSOLUTE MONOCYTES (AUTO) 0.7 10^3/uL (0.1-1.4); EOSINOPHILS % (AUTO) 5.5 % (0-6); HEMATOCRIT 26.6 % (36.0-47.0); HEMOGLOBIN 8.5 g/dL (12.0-15.5); LYMPHOCYTES % (AUTO) 34.6 % (13-45); MEAN CORPUSCULAR HGB CONC 31.8 g/dL (32.0-36.0); MEAN CORPUSCULAR VOLUME 66 fl (80-97); MONOCYTES % (AUTO) 10.8 % (3-13); PLATELET COUNT 281 10^3/uL (150-450); RED BLOOD COUNT 4.04 10^6/uL (3.72-5.28); RED CELL DISTRIBUTION WIDTH 17.5 % (11.5-14.0); SEGMENTED NEUTROPHILS % (AUTO) 48.1 % (42-78); TOTAL CELLS COUNTED % (AUTO) 100 %; WHITE BLOOD COUNT 6.2 10^3/uL (4.0-10.5)
[2018-08-24 01:22] LABS: ALANINE AMINOTRANSFERASE 10 U/L (9-52); ALBUMIN 3.9 g/dL (3.5-5.0); ALKALINE PHOSPHATASE 45 U/L (38-126); ANION GAP 10 (5-19); ASPARTATE AMINO TRANSFERASE 25 U/L (14-36); BILIRUBIN,DIRECT 0.3 mg/dL (0.0-0.4); BILIRUBIN,TOTAL 0.6 mg/dL (0.2-1.3); BLOOD UREA NITROGEN 29 mg/dL (7-20); CALCIUM 9.5 mg/dL (8.4-10.2); CARBON DIOXIDE 26 mmol/L (22-30); CHLORIDE 105 mmol/L (98-107); GLUCOSE 95 mg/dL (75-110); POTASSIUM 4.3 mmol/L (3.6-5.0); SODIUM 141.4 mmol/L (137-145); TOTAL PROTEIN 6.6 g/dL (6.3-8.2)
[2018-08-24 03:02] VITALS: BP 134/58
--- NOTE | 2018-08-24 08:44 | EKG REPORT ---
SEVERITY:- NORMAL ECG - SINUS RHYTHM : Confirmed by: Lupillo Murray MD 24-Aug-2018 08:39:14
== END 2018-08-24 03:14 | disposition home or self-care (01) ==
LOC: ER 23:33
DX: T42.8X1A Poisoning by antiparkinsonism drugs and other central muscle-tone depressants, accidental (unintentional), initial encounter (principal); Y92.009 Unspecified place in unspecified non-institutional (private) residence as the place of occurrence of the external cause; G20 Parkinson's disease; R51 Headache; I10 Essential (primary) hypertension; E11.9 Type 2 diabetes mellitus without complications; E03.9 Hypothyroidism, unspecified; Z88.2 Allergy status to sulfonamides; Z79.84 Long term (current) use of oral hypoglycemic drugs
CPT/HCPCS: 93005; 99284; 96360; 36415; 82553; 82550; 85025; 80053; 93010; J7040

== ENCOUNTER 2018-09-30 10:56 | Emergency (ER) | payer MEDICARE, OTHER ==
[2018-09-30] MEDS ORDERED: DIPH/PERTUSS(ACELL)/TETANUS VAC/PF 0.5 ML SYR (>=10YO) IM ONE (11:24)
--- NOTE | 2018-09-30 11:30 | ER Document Report ---
ED Medical Screen (RME) - General Chief Complaint: Fall Stated Complaint: FALL/LACERATION,HEADACHE Time Seen by Provider: 09/30/18 11:19 Primary Care Provider: CHARISMA CRUZ MD [Primary Care Provider] - Follow up as needed TRAVEL OUTSIDE OF THE [place] IN LAST 30 DAYS: No - HPI Notes: 09/30/18 11:25 Patient is a 73-year-old female with history of Parkinson's and type 2 diabetes who presents complaining of headache, left sided rib pain, laceration to left alevism area status post fall in her kitchen prior to arrival. Patient believes admit she may have lost her footing as she has been falling more so over the past 6 months. Patient did not lose consciousness. She has been able to ambulate since then without any difficulties. Daughter states that she did seem a little confused initially, but that has improved. Denies any fever, neck pain, changes in vision/speech/hearing, URI, sore throat, chest pain, palpitations, syncope, cough, acute onset shortness of breath, wheeze, dyspnea, abdominal pain, nausea/vomiting/diarrhea, urinary retention, dysuria, hematuria, loss of control of bowel or bladder, numbness/tingling, saddle anesthesia, muscle paralysis, or rash. I have treated and performed a rapid initial assessment of this patient. A comprehensive ED assessment and evaluation of the patient, analysis of test results and completion of medical decision making process will be conducted by additional ED providers. PHYSICAL EXAMINATION: GENERAL: no acute distress. A&Ox4. Answers questions appropriately. HEAD: Atraumatic, normocephalic. Non-tender. No dacosta sign Face: + 1cm linear superficial laceration left lateral orbital area. EYES: Pupils equal round and reactive to light, extraocular movements intact, sclera anicteric, conjunctiva are normal. No raccoon eyes/entrapment ENT: EAC clear b/l. TM's intact b/l without erythema, fluid, or perforation. Nares patent and without discharge. oropharynx clear without exudates. No tonsilar hypertrophy or erythema. Moist mucous membranes. No hemotympanum/CSF discharge. NECK: Normal range of motion, supple without lymphadenopathy. No rigidity. No midline tenderness. Chest: No flail chest. equal rise/fall. + tenderness left anterolateral chest wall LUNGS: Breath sounds clear to auscultation bilaterally and equal. No wheezes rales or rhonchi. HEART: Regular rate and rhythm without murmurs, rubs, gallops. Musculoskeletal: Ext's b/l: FROM to passive/active. Strength 5+/5. No deficits noted. No bony tenderness of extremities. Pelvis stable. Back: FROM to passive/active. Strength 5+/5. No vertebral point tenderness, stepoffs, or deformities. No other bony tenderness or ecchymosis. Extremities: No cyanosis, clubbing, or edema b/l. Peripheral pulses 2+. Capillary refill less than 2 seconds. NEUROLOGICAL: NIH 0. GCS 15. Cranial nerves grossly intact. Normal speech. Normal sensory, motor exams. PSYCH: Normal mood, normal affect. SKIN: see above. - Related Data Allergies/Adverse Reactions: Sulfa (Sulfonamide Antibiotics) Allergy (Verified 08/18/17 21:47) Hives Past Medical History - Social History Frequency of alcohol use: None Drug Abuse: None Family history: Reviewed & Not Pertinent - Past Medical History Cardiac Medical History: Reports: Hx Hypertension Pulmonary Medical History: Neurological Medical History: Endocrine Medical History: Reports: Hx Diabetes Mellitus Type 1, Hx Diabetes Mellitus Type 2, Hx Hypothyroidism Renal/ Medical History: Denies: Hx Peritoneal Dialysis GI Medical History: Musculoskeltal Medical History: Reports Hx Arthritis Psychiatric Medical History: Reports: Hx Anxiety Infectious Medical History: Past Surgical History: Reports: Hx Appendectomy, Hx Section, Hx Neurologic Surgery - CARPAL TUNNEL, Hx Orthopedic Surgery - BACK SURGERY x2. CARPAL TUNNEL RELEASE. - Immunizations Hx Diphtheria, Pertussis, Tetanus Vaccination: Yes Physical Exam - Vital signs Vitals: Temp Pulse Resp BP Pulse Ox 98.3 F 67 18 101/34 L 97 09/30/18 11:01 09/30/18 11:01 09/30/18 11:01 09/30/18 11:01 09/30/18 11:01 Course - Vital Signs Vital signs: Temp Pulse Resp BP Pulse Ox 98.3 F 67 18 101/34 L 97 09/30/18 11:01 09/30/18 11:01 09/30/18 11:01 09/30/18 11:01 09/30/18 11:01 Doctor's Discharge - Discharge Referrals: CHARISMA CRUZ MD [Primary Care Provider] - Follow up as needed
--- NOTE | 2018-09-30 11:54 | RADIOLOGY REPORT (SQ) ---
EXAM DESCRIPTION: CT HEAD WITHOUT COMPLETED DATE/TIME: 09/30/2018 11:35 am REASON FOR STUDY: fall and hit head; on blood thinners COMPARISON: CT 07/18/2016. MR 05/24/2018 TECHNIQUE: Axial images acquired through the brain without intravenous contrast. Images reviewed wi th bone, brain and subdural windows. Additional sagittal and coronal reconstructions were generated. Images stored on PACS. All CT scanners at this facility use dose modulation, iterative reconstruction, and/or weight based d osing when appropriate to reduce radiation dose to as low as reasonably achievable (ALARA). [facility]: Dose Right [facility]: CareDose [facility]: Dose Right [facility]: Teradose 4D [facility]: Smart B[employer]ee RADIATION DOSE: CT Rad equipment meets quality standard of care and radiation dose reduction techniq ues were employed. CTDIvol: 53.2 mGy. DLP: 991 mGy-cm. mGy. LIMITATIONS: None. FINDINGS: VENTRICLES: Normal size and contour. CEREBRUM: There is limited subarachnoid hemorrhage in the left frontal lobe. This is best seen on im age 21 series 2. No mass is seen. There is no midline shift. Normal johnson/white matter differentiati on. No areas of low density in the white matter. CEREBELLUM: No masses. No hemorrhage. No alteration of density. No evidence for acute infarction. EXTRAAXIAL SPACES: No fluid collections. No masses. ORBITS AND GLOBE: No intra- or extraconal masses. Normal contour of globe without masses. CALVARIUM: No fracture. PARANASAL SINUSES: No fluid or mucosal thickening. SOFT TISSUES: No mass or hematoma. OTHER: No other significant finding. IMPRESSION: Limited subarachnoid hemorrhage in the left frontal lobe. EVIDENCE OF ACUTE STROKE: Yes left [place] or left MCA. COMMENT: Pertinent findings on the imaging study reported as a CRITICAL RESULT to REID DUBOIS NP at11:47 on 09/30/2018. Category of Critical Result: Subarachnoid hemorrhage. Quality ID # 436: Final reports with documentation of one or more dose reduction techniques (e.g., Au tomated exposure control, adjustment of the mA and/or kV according to patient size, use of iterative reconstruction technique) TECHNICAL DOCUMENTATION: JOB ID: [id number] [employer]- All Rights Reserved Reading location - IP/workstation name: [email or web address]
--- NOTE | 2018-09-30 11:56 | RADIOLOGY REPORT (SQ) ---
EXAM DESCRIPTION: CT CERVICAL SPINE WITHOUT COMPLETED DATE/TIME: 09/30/2018 11:35 am REASON FOR STUDY: fall COMPARISON: None. TECHNIQUE: Axial images acquired through the cervical spine without intravenous contrast. Images re viewed with lung, soft tissue and bone windows. Reconstructed coronal and sagittal MPR images review ed. Images stored on PACS. All CT scanners at this facility use dose modulation, iterative reconstruction, and/or weight based d osing when appropriate to reduce radiation dose to as low as reasonably achievable (ALARA). [facility]: Dose Right [facility]: CareDose [facility]: Dose Right [facility]: Teradose 4D [facility]: [employer]ici RADIATION DOSE: CT Rad equipment meets quality standard of care and radiation dose reduction techniq ues were employed. CTDIvol: 18.3 mGy. DLP: 353 mGy-cm. mGy. LIMITATIONS: None. FINDINGS: ALIGNMENT: Anatomic. MINERALIZATION: Normal. VERTEBRAL BODIES: No fractures or dislocation. DISCS: Multilevel disc space narrowing with osteophytes. FACETS, LATERAL MASSES, POSTERIOR ELEMENTS: Facet arthropathy. No fractures. No dislocation. No ac table mountain findings. HARDWARE: None in the spine. VISUALIZED RIBS: No fractures. LUNG APICES AND SOFT TISSUES: No significant or acute findings. OTHER: No other significant finding. IMPRESSION: CHRONIC DEGENERATIVE CHANGES. NO ACUTE FINDINGS. TECHNICAL DOCUMENTATION: JOB ID: [id number] Quality ID # 436: Final reports with documentation of one or more dose reduction techniques (e.g., Au tomated exposure control, adjustment of the mA and/or kV according to patient size, use of iterative reconstruction technique) 2010 [employer]- All Rights Reserved Reading location - IP/workstation name: [email or web address]
[2018-09-30] MEDS ORDERED: LIDOCAINE 1% INJ-PF (10 MG/ML) 30 ML SDV INJ ONE (12:08)
[2018-09-30 12:42] LABS: ABSOLUTE BASOPHILS # (AUTO) 0.1 10^3/uL (0.0-0.2); ABSOLUTE EOSINOPHILS # (AUTO) 0.2 10^3/uL (0.0-0.6); ABSOLUTE LYMPHOCYTES (AUTO) 2.2 10^3/uL (0.5-4.7); ABSOLUTE MONOCYTES (AUTO) 0.7 10^3/uL (0.1-1.4); ABSOLUTE NEUT (AUTO) 4.3 10^3/uL (1.7-8.2); BASOPHILS % (AUTO) 0.8 % (0-2); EOSINOPHILS % (AUTO) 2.9 % (0-6); HEMATOCRIT 28.8 % (36.0-47.0); HEMOGLOBIN 9.3 g/dL (12.0-15.5); LYMPHOCYTES % (AUTO) 29.5 % (13-45); MEAN CORPUSCULAR HEMOGLOBIN 21.2 pg (27.0-33.4); MEAN CORPUSCULAR HGB CONC 32.4 g/dL (32.0-36.0); MEAN CORPUSCULAR VOLUME 66 fl (80-97); MONOCYTES % (AUTO) 9.5 % (3-13); PLATELET COUNT 266 10^3/uL (150-450); RED BLOOD COUNT 4.39 10^6/uL (3.72-5.28); RED CELL DISTRIBUTION WIDTH 16.4 % (11.5-14.0); SEGMENTED NEUTROPHILS % (AUTO) 57.3 % (42-78); TOTAL CELLS COUNTED % (AUTO) 100 %; WHITE BLOOD COUNT 7.5 10^3/uL (4.0-10.5)
[2018-09-30 12:49] LABS: INTERNATIONAL RATION (INR) 0.98; PROTHROMBIN TIME 13.5 SEC (11.4-15.4)
[2018-09-30 12:50] LABS: PARTIAL THROMBOPLASTIN TIME 32.7 SEC (23.5-35.8)
--- NOTE | 2018-09-30 13:03 | RADIOLOGY REPORT (SQ) ---
EXAM DESCRIPTION: RIBS LEFT W/PA CHEST COMPLETED DATE/TIME: 09/30/2018 12:49 pm REASON FOR STUDY: fall and rib pain; on blood thinners COMPARISON: None. TECHNIQUE: Frontal view of the chest and additional views of the left ribs acquired. NUMBER OF VIEWS: Three view. LIMITATIONS: None. FINDINGS: FRONTAL CXR: No pneumothorax. No pleural effusion. No atelectasis or infiltrates. RIBS: Left anterior- lateral 8th and 9th rib fractures. No lytic or blastic bony lesions. OTHER: No other significant finding. IMPRESSION: Left anterior- lateral 8th and 9th rib fractures. COMMENT: SITE OF TRAUMA/COMPLAINT MARKED/STAMP COMPLETED: NO. TECHNICAL DOCUMENTATION: JOB ID: [id number] [place]-72 2010 [employer]- All Rights Reserved Reading location - IP/workstation name: [email or web address]
[2018-09-30 13:05] LABS: ALANINE AMINOTRANSFERASE 16 U/L (9-52); ALBUMIN 4.2 g/dL (3.5-5.0); ALKALINE PHOSPHATASE 50 U/L (38-126); ANION GAP 9 (5-19); ASPARTATE AMINO TRANSFERASE 30 U/L (14-36); BILIRUBIN,DIRECT 0.4 mg/dL (0.0-0.4); BILIRUBIN,TOTAL 0.5 mg/dL (0.2-1.3); BLOOD UREA NITROGEN 21 mg/dL (7-20); CALCIUM 9.6 mg/dL (8.4-10.2); CARBON DIOXIDE 27 mmol/L (22-30); CHLORIDE 102 mmol/L (98-107); GLUCOSE 89 mg/dL (75-110); POTASSIUM 4.9 mmol/L (3.6-5.0); SODIUM 138.3 mmol/L (137-145); TOTAL PROTEIN 6.7 g/dL (6.3-8.2)
--- NOTE | 2018-09-30 13:41 | ER Document Report ---
ED General - General TRAVEL OUTSIDE OF THE [place] IN LAST 30 DAYS: No <DAVID CARVALHO - Last Filed: 09/30/18 13:35> <ALEXANDRA MANLEY - Last Filed: 09/30/18 14:16> - General Chief Complaint: Fall Stated Complaint: FALL/LACERATION,HEADACHE Time Seen by Provider: 09/30/18 11:19 Primary Care Provider: CHARISMA CRUZ MD [Primary Care Provider] - Follow up as needed - HPI Notes: Patient is a very pleasant 73-year-old female who presents to the emergency department for evaluation after a fall. She has a history of frequent falls, particularly over the last 6 months. She was in the kitchen she fell. She believes she struck her chest on the counter and then fell to the ground. She denies any significant loss of consciousness. She has minimal pain at this time. She denies any difficulty seeing, speaking, swallowing. She states she i s been stable on her Parkinson's meds. As being on any sort of anticoagulation other than an 81 mg aspirin daily. (DAVID CARVALHO) - Related Data Allergies/Adverse Reactions: Sulfa (Sulfonamide Antibiotics) Allergy (Verified 08/18/17 21:47) Sudhir Past Medical History - General Information source: Patient, Relative - Social History Smoking Status: Never Smoker Frequency of alcohol use: None Drug Abuse: None Family History: Reviewed & Not Pertinent Patient has suicidal ideation: No Patient has homicidal ideation: No - Past Medical History Cardiac Medical History: Reports: Hx Hypertension Pulmonary Medical History: Neurological Medical History: Reports: Other - Parkinson's disease Endocrine Medical History: Reports: Hx Diabetes Mellitus Type 2, Hx Hypothyroidism Renal/ Medical History: Denies: Hx Peritoneal Dialysis GI Medical History: Musculoskeletal Medical History: Reports Hx Arthritis Psychiatric Medical History: Reports: Hx Anxiety Infectious Medical History: Past Surgical History: Reports: Hx Appendectomy, Hx Section, Hx Neurologic Surgery - CARPAL TUNNEL, Hx Orthopedic Surgery - BACK SURGERY x2. CARPAL TUNNEL RELEASE. - Immunizations Hx Diphtheria, Pertussis, Tetanus Vaccination: Yes <DAVID CARVALHO - Last Filed: 09/30/18 13:35> Review of Systems - Review of Systems Constitutional: See HPI Cardiovascular: No symptoms reported Respiratory: No symptoms reported Gastrointestinal: No symptoms reported Genitourinary: No symptoms reported Musculoskeletal: See HPI Skin: No symptoms reported Neurological/Psychological: No symptoms reported <DAVID CARVALHO - Last Filed: 09/30/18 13:35> Physical Exam <DAVID CARVALHO - Last Filed: 09/30/18 13:35> - Vital signs Vitals: Temp Pulse Resp BP Pulse Ox 98.3 F 67 18 101/34 L 97 09/30/18 11:01 09/30/18 11:01 09/30/18 11:01 09/30/18 11:01 09/30/18 11:01 - Notes Notes: Vital signs reviewed, please refer to chart. Head is normocephalic. She has a 2 cm linear facial laceration just lateral to the left brow. No obvious foreign body, no active bleeding. Pupils equal round, reactive to light. Nares are patent without septal hematoma. Oral mucous is moist. Neck is supple without meningismus. Heart is regular rate and rhythm. Lungs are clear to auscultation bilaterally. Chest wall is tender to palpation on the left from approximately the fifth to the 10th ribs. No flail chest. Chest wall excursion is equal bilaterally. Abdomen is soft, nontender, normoactive bowel sounds throughout. Extremities without cyanosis, clubbing. Posterior calves are nontender. Peripheral pulses are equal. Skin is warm and dry. Patient is awake, alert, oriented x3. Cranial nerves II - XII are grossly intact without focal neurological deficits. Strength is plus 5 out of 5 bilateral lower extremities. Sensation is intact. Reflexes symmetrical. Intact [id number], rapid alternating movements, [id number]. (DAVID CARVALHO) Course - Laboratory Result Diagrams: 09/30/18 12:27 09/30/18 12:27 <DAVID CARVALHO - Last Filed: 09/30/18 13:35> - Laboratory Result Diagrams: 09/30/18 12:27 09/30/18 12:27 <ALEXANDRA MANLEY - Last Filed: 09/30/18 14:16> - Re-evaluation Re-evalutation: 09/30/18 13:42 Patient presents to the emergency department for evaluation. She had initial imaging is ordered through triage. I was notified by the physician real estate assistant that the patient in fact was found to have a small subarachnoid hemorrhage. Findings were explained to the patient, blood work was obtained, including coagulation panel. Laboratory investigations were largely unremarkable. Given the finding of the subarachnoid hemorrhage, I did transfer the patient. I spoke to [facility], was transferred to the ED physician Dr. Bonds. He happily excepted the patient to the ED as a trauma consult. Wound was closed by the physician real estate assistant, please see her procedure note. (DAVID CARVALHO) - Vital Signs Vital signs: Temp Pulse Resp BP Pulse Ox 98.3 F 67 19 140/61 H 100 09/30/18 11:01 09/30/18 11:01 09/30/18 13:22 09/30/18 13:22 09/30/18 13:22 - Laboratory Laboratory results interpreted by me: 09/30/18 09/30/18 12:27 12:27 Hgb 9.3 L Hct 28.8 L MCV 66 L MCH 21.2 L RDW 16.4 H BUN 21 H Procedures - Laceration/Wound Repair Left Head Wound length (cm): 2 Wound's Depth, Shape: Superficial, Irregular Laceration pre-procedure: Sterile PPE donned, Sterile drapes applied, Shur-Clens applied Anesthetic type: 1% Lidocaine Volume Anesthetic (mLs): 1 Wound explored: Clean, No foreign body removed Wound Repaired With: Sutures Suture Size/Type: 5:0, Prolene Complications: No <ALEXANDRA MANLEY - Last Filed: 09/30/18 14:16> - Laceration/Wound Repair Left Head Notes: 09/30/18 Left head wound appropriately anesthetized and cleansed. Area irrigated. 3 sutures placed without difficulty. Patient tolerated well. (ALEXANDRA MANLEY) Discharge - Discharge Admitting Provider: Cammie <DAVID CARVALHO - Last Filed: 09/30/18 13:35> <ALEXANDRA MANLEY - Last Filed: 09/30/18 14:16> - Discharge Clinical Impression: Subarachnoid hemorrhage following injury Qualifiers: Encounter type: initial encounter Loss of consciousness presence/duration: without LOC Qualified Code(s): S06.6X0A - Traumatic subarachnoid hemorrhage without loss of consciousness, initial encounter Multiple rib fractures Qualifiers: Encounter type: initial encounter Fracture type: closed Laterality: left Qualified Code(s): S22.42XA - Multiple fractures of ribs, left side, initial encounter for closed fracture Condition: Stable Disposition: [facility] Referrals: CHARISMA CRUZ MD [Primary Care Provider] - Follow up as needed
[2018-09-30 15:25] VITALS: BP 118/60
== END 2018-09-30 15:25 | disposition short-term general hospital (02) ==
LOC: ER 10:56
DX: S06.6X0A Traumatic subarachnoid hemorrhage without loss of consciousness, initial encounter (principal); S01.81XA Laceration without foreign body of other part of head, initial encounter; S22.42XA Multiple fractures of ribs, left side, initial encounter for closed fracture; W19.XXXA Unspecified fall, initial encounter; E11.9 Type 2 diabetes mellitus without complications; I10 Essential (primary) hypertension; G20 Parkinson's disease; Z79.899 Other long term (current) drug therapy; Z79.82 Long term (current) use of aspirin; Z88.2 Allergy status to sulfonamides
CPT/HCPCS: 99284; 90471; 36415; 85025; 85610; 85730; 80053; 71101; 70450; 72125; 90715; 12011; J3490

== ENCOUNTER 2018-12-27 20:33 | Emergency (ER) | payer MEDICARE, OTHER ==
--- NOTE | 2018-12-27 21:12 | ER Document Report ---
ED Medical Screen (RME) - General Chief Complaint: Laceration Stated Complaint: FALL,LEFT EYE INJURY Time Seen by Provider: 12/27/18 21:00 Primary Care Provider: CHARISMA CRUZ MD [Primary Care Provider] - Follow up as needed Mode of Arrival: Wheelchair Information source: Patient, Relative Notes: This 73-year-old female with history of Parkinson's presents to the emergency department with a laceration by her left eyebrow. Daughter reports they were at a neurologist appointment in [place] and had just arrived home and fell coming in the back door. They are not sure if she tripped because she shuffles when she walks due to her Parkinson's or if she can became dizzy and fell. No change in LOC. Patient recently fell 3 months ago and had sutures placed when she fell. She takes a baby aspirin a day. I have greeted and performed a rapid initial assessment of this patient. A comprehensive ED assessment and evaluation of the patient, analysis of test results and completion of the medical decision making process will be conducted by additional ED providers. Dictation of this chart was performed using voice recognition software; therefore, there may be some unintended grammatical errors. TRAVEL OUTSIDE OF THE [place] IN LAST 30 DAYS: No - Related Data Allergies/Adverse Reactions: shrimp Allergy (Verified 12/27/18 21:08) Sulfa (Sulfonamide Antibiotics) Allergy (Verified 08/18/17 21:47) Hives Past Medical History - Social History Family history: Reviewed & Not Pertinent - Past Medical History Cardiac Medical History: Reports: Hx Hypertension Pulmonary Medical History: Neurological Medical History: Endocrine Medical History: Reports: Hx Diabetes Mellitus Type 1, Hx Diabetes Mellitus Type 2, Hx Hypothyroidism Renal/ Medical History: Denies: Hx Peritoneal Dialysis GI Medical History: Musculoskeltal Medical History: Reports Hx Arthritis Psychiatric Medical History: Reports: Hx Anxiety Infectious Medical History: Past Surgical History: Reports: Hx Appendectomy, Hx Section, Hx Neurologic Surgery - CARPAL TUNNEL, Hx Orthopedic Surgery - BACK SURGERY x2. CARPAL TUNNEL RELEASE. - Immunizations Hx Diphtheria, Pertussis, Tetanus Vaccination: Yes Physical Exam - Vital signs Vitals: Temp Pulse Resp BP Pulse Ox 97.5 F 67 17 143/50 H 100 12/27/18 20:38 12/27/18 20:38 12/27/18 20:38 12/27/18 20:38 12/27/18 20:38 Course - Vital Signs Vital signs: Temp Pulse Resp BP Pulse Ox 97.5 F 67 17 143/50 H 100 12/27/18 20:38 12/27/18 20:38 12/27/18 20:38 12/27/18 20:38 12/27/18 20:38 Doctor's Discharge - Discharge Referrals: CHARISMA CRUZ MD [Primary Care Provider] - Follow up as needed
[2018-12-27 21:53] LABS: ALBUMIN 4.3 g/dL (3.5-5.0); ALKALINE PHOSPHATASE 52 U/L (38-126); ANION GAP 9 (5-19); ASPARTATE AMINO TRANSFERASE 32 U/L (14-36); BILIRUBIN,DIRECT 0.2 mg/dL (0.0-0.4); BILIRUBIN,TOTAL 0.5 mg/dL (0.2-1.3); BLOOD UREA NITROGEN 21 mg/dL (7-20); CALCIUM 9.6 mg/dL (8.4-10.2); CARBON DIOXIDE 27 mmol/L (22-30); CHLORIDE 102 mmol/L (98-107); GLUCOSE 132 mg/dL (75-110); TOTAL PROTEIN 7.1 g/dL (6.3-8.2)
--- NOTE | 2018-12-27 22:09 | RADIOLOGY REPORT (SQ) ---
EXAM DESCRIPTION: CT HEAD WITHOUT IV CONTRAST COMPLETED DATE/TME: 12/27/2018 21:08 CLINICAL HISTORY: 73 years, Female, fell, laceration COMPARISON: 09/30/2018 CT TECHNIQUE: 187 Images stored on PACS. All CT scanners at this facility use dose modulation, iterative reconstruction, and/or weight based dosing when appropriate to reduce radiation dose to as low as reasonably achievable (ALARA). [facility]: Dose Right [facility]: CareDose [facility]: Dose Right [facility]: Teradose 4D [facility]: [employer] LIMITATIONS: None. FINDINGS: The globes are intact. The paranasal sinuses and mastoid air cells are unremarkable. No displaced or depressed skull fracture. No intra or extra-axial hemorrhage. Mild age-appropriate atrophy and small vessel ischemic change. No mass or midline shift. CT is limited for evaluation of acute infarct. No CT evidence for large or territorial acute infarct IMPRESSION: Mild atrophy and small vessel ischemic change TECHNICAL DOCUMENTATION: Quality ID # 436: Final reports with documentation of one or more dose reduction techniques (e.g., Automated exposure control, adjustment of the mA and/or kV according to patient size, use of iterative reconstruction technique) copyright 2010 [employer]- All Rights Reserved
--- NOTE | 2018-12-27 22:10 | RADIOLOGY REPORT (SQ) ---
CT CERVICAL SPINE WITHOUT IV CONTRAST EXAM DATE: 12/27/2018 9:08 PM CDT HISTORY: Neck pain. COMPARISON: 09/30/2018 TECHNIQUE: CT scan of the cervical spine without IV contrast. This exam was performed according to our departmental dose-optimization program, which includes automated exposure control, adjustment of the mA and/or kV according to patient size and/or use of iterative reconstruction technique. FINDINGS: No acute cervical fracture or prevertebral soft tissue swelling is seen. There is straightening of the normal cervical lordosis, which may be due to cervical collar, muscle spasm, or patient positioning. Multilevel degenerative disc disease along with facet arthropathy is present. There are multilevel disc bulges with osteophytosis. IMPRESSION: No acute fracture or subluxation of the cervical spine. Multilevel degenerative changes throughout cervical spine.
--- NOTE | 2018-12-27 22:28 | EKG REPORT ---
SEVERITY:- NORMAL ECG - SINUS RHYTHM : Confirmed by: Lupillo Murray MD 27-Dec-2018 22:28:06
[2018-12-27 23:03] LABS: ABSOLUTE EOSINOPHILS # (AUTO) 0.2 10^3/uL (0.0-0.6); ABSOLUTE LYMPHOCYTES (AUTO) 1.6 10^3/uL (0.5-4.7); ABSOLUTE MONOCYTES (AUTO) 0.7 10^3/uL (0.1-1.4); ABSOLUTE NEUT (AUTO) 4.2 10^3/uL (1.7-8.2); BASOPHILS % (AUTO) 0.6 % (0-2); HEMATOCRIT 28.1 % (36.0-47.0); LYMPHOCYTES % (AUTO) 23.3 % (13-45); MEAN CORPUSCULAR HEMOGLOBIN 20.9 pg (27.0-33.4); MEAN CORPUSCULAR HGB CONC 31.9 g/dL (32.0-36.0); MEAN CORPUSCULAR VOLUME 66 fl (80-97); MONOCYTES % (AUTO) 10.5 % (3-13); PLATELET COUNT 301 10^3/uL (150-450); RED BLOOD COUNT 4.28 10^6/uL (3.72-5.28); RED CELL DISTRIBUTION WIDTH 16.9 % (11.5-14.0); SEGMENTED NEUTROPHILS % (AUTO) 62.6 % (42-78); TOTAL CELLS COUNTED % (AUTO) 100 %; WHITE BLOOD COUNT 6.7 10^3/uL (4.0-10.5)
[2018-12-27 23:06] LABS: APPEARANCE,URINE CLEAR; BILIRUBIN,URINE NEGATIVE (NEGATIVE); COLOR,URINE YELLOW; GLUCOSE, URINE NEGATIVE (NEGATIVE); KETONES,URINE TRACE mg/dL (NEGATIVE); LEUKOCYTE ESTERASE,URINE NEGATIVE (NEGATIVE); NITRITE,URINE NEGATIVE (NEGATIVE); PROTEIN,URINE NEGATIVE (NEGATIVE); URINE SPECIFIC GRAVITY 1.009
[2018-12-28 01:14] VITALS: BP 127/59
--- NOTE | 2018-12-28 01:59 | ER Document Report ---
ED General - General Chief Complaint: Laceration Stated Complaint: FALL,LEFT EYEBROW INJURY Time Seen by Provider: 12/27/18 21:00 Primary Care Provider: CHARISMA CRUZ MD [Primary Care Provider] - Follow up as needed Mode of Arrival: Wheelchair Information source: Patient, Relative Notes: Patient fell in at 8 PM last night approximately 27 hours ago. She was at the doctor's office and was tired. She has a history of Parkinson's disease. She has a linear laceration to the left eyebrow. No other complaints. She has a history of thalassemia. No recent blood transfusion. No chest pain or shortness of breath. No neck pain. She is on aspirin. No other blood thinners. No other complaints. TRAVEL OUTSIDE OF THE [place] IN LAST 30 DAYS: No - Related Data Allergies/Adverse Reactions: shrimp Allergy (Verified 12/27/18 21:08) Sulfa (Sulfonamide Antibiotics) Allergy (Verified 08/18/17 21:47) Hives Past Medical History - General Information source: Patient, Relative - Social History Smoking Status: Never Smoker Frequency of alcohol use: None Drug Abuse: None Family History: Reviewed & Not Pertinent Patient has suicidal ideation: No Patient has homicidal ideation: No - Past Medical History Cardiac Medical History: Reports: Hx Hypertension Pulmonary Medical History: Neurological Medical History: Endocrine Medical History: Reports: Hx Diabetes Mellitus Type 1, Hx Diabetes Mellitus Type 2, Hx Hypothyroidism Renal/ Medical History: Denies: Hx Peritoneal Dialysis GI Medical History: Musculoskeletal Medical History: Reports Hx Arthritis Psychiatric Medical History: Reports: Hx Anxiety Infectious Medical History: Past Surgical History: Reports: Hx Appendectomy, Hx Section, Hx Neurologic Surgery - CARPAL TUNNEL, Hx Orthopedic Surgery - BACK SURGERY x2. CARPAL TUNNEL RELEASE. - Immunizations Hx Diphtheria, Pertussis, Tetanus Vaccination: Yes Review of Systems - Review of Systems Constitutional: denies: Chills, Fever -: Yes All other systems reviewed and negative Physical Exam - Vital signs Vitals: Temp Pulse Resp BP Pulse Ox 97.5 F 67 17 143/50 H 100 12/27/18 20:38 12/27/18 20:38 12/27/18 20:38 12/27/18 20:38 12/27/18 20:38 Interpretation: Normal - General General appearance: Appears well, Alert - HEENT Head: Normocephalic, Atraumatic Eyes: Normal Extraocular movements intact: Yes Pupils: PERRL Visual acuity- Both eyes: NORMAL Visual lawler normal: Yes Ears: Normal Neck: Normal, Supple - Respiratory Respiratory status: No respiratory distress Chest status: Nontender Breath sounds: Normal Chest palpation: Normal - Cardiovascular Rhythm: Regular Heart sounds: Normal auscultation Murmur: No - Abdominal Inspection: Normal Distension: No distension Bowel sounds: Normal Tenderness: Nontender Organomegaly: No organomegaly - Back Back: Normal, Nontender - Extremities General upper extremity: Normal inspection, Nontender, Normal color, Normal ROM, Normal temperature General lower extremity: Normal inspection, Nontender, Normal color, Normal ROM, Normal temperature, Normal weight bearing. No: Yan's sign - Neurological Neuro grossly intact: Yes Cognition: Normal Orientation: AAOx4 [place] Coma Scale Eye Opening: Spontaneous [place] Coma Scale Verbal: Oriented [place] Coma Scale Motor: Obeys Commands [place] Coma Scale Total: 15 Speech: Normal Motor strength normal: LUE, RUE, LLE, RLE Sensory: Normal Notes: CHRONIC MUSCLE WEAKNESS FROM PARKINSON'S: USES WALKER. - Psychological Associated symptoms: Normal affect, Normal mood - Skin Skin Temperature: Warm Skin Moisture: Dry Skin Color: Normal Notes: 4 cm linear laceration left eyebrow no foreign body. Course - Re-evaluation Re-evalutation: 12/28/18 02:07 Labs reviewed. Patient is not anemic to qualify for blood transfusion at this time. I have asked her and her family to talk to her physician about possibly discontinuing the aspirin due to her frequent falls. CAT scans reviewed. Patient will return at once if worse or new symptoms. She will follow-up with her doctor on Sunday. 12/28/18 02:09 EKG per me shows normal sinus rhythm at a rate of 70 with mild artifact. No acute injury pattern. - Vital Signs Vital signs: Temp Pulse Resp BP Pulse Ox 97.5 F 67 16 127/59 H 100 12/27/18 20:38 12/27/18 20:38 12/28/18 01:01 12/28/18 01:01 12/28/18 01:01 - Laboratory Result Diagrams: 12/27/18 22:52 12/27/18 21:30 Laboratory results interpreted by me: 12/27/18 12/27/18 12/27/18 21:30 22:37 22:52 Hgb 9.0 L Hct 28.1 L MCV 66 L MCH 20.9 L MCHC 31.9 L RDW 16.9 H BUN 21 H Glucose 132 H Urine Ketones TRACE H Urine Urobilinogen 2.0 H - Diagnostic Test Radiology reviewed: Image reviewed, Reports reviewed Procedures - Laceration/Wound Repair Left Face Time completed: 01:54 Wound length (cm): 4 - LEFT EYEBROW Wound's Depth, Shape: Linear Laceration pre-procedure: Other Wound explored: Clean Irrigated w/ Saline (mLs): 10 Wound Repaired With: Dermabond Post-procedure NV exam normal: Yes Complications: No Discharge - Discharge Clinical Impression: Parkinson disease Fall Qualifiers: Encounter type: initial encounter Qualified Code(s): W19.XXXA - Unspecified fall, initial encounter Anemia Qualifiers: Anemia type: other cause Other causes of anemia: other cause, not classified Qualified Code(s): D64.89 - Other specified anemias Thalassemia Qualifiers: Thalassemia type: unspecified type Qualified Code(s): D56.9 - Thalassemia, unspecified Laceration of eyebrow, left Qualifiers: Encounter type: initial encounter Qualified Code(s): S01.112A - Laceration without foreign body of left eyelid and periocular area, initial encounter Contusion Qualifiers: Encounter type: initial encounter Contusion area: head Contusion of head detail: periocular area Laterality: left Qualified Code(s): S00.12XA - Contusion of left eyelid and periocular area, initial encounter Disposition: HOME, SELF-CARE Instructions: Laceration Care ([facility]), Antibiotic Ointment Protection ([facility]) Additional Instructions: Return at once if worse or new symptoms. Follow-up with your doctor on Sunday. Referrals: CHARISMA CRUZ MD [Primary Care Provider] - Follow up as needed
== END 2018-12-28 02:22 | disposition home or self-care (01) ==
LOC: ER 20:33
PROC: 0HQ1XZZ Repair Face Skin, External Approach (ICD-10-PCS; principal; 2018-12-27)
DX: S01.112A Laceration without foreign body of left eyelid and periocular area, initial encounter (principal); G20 Parkinson's disease; D56.9 Thalassemia, unspecified; D64.89 Other specified anemias; W19.XXXA Unspecified fall, initial encounter; I10 Essential (primary) hypertension
CPT/HCPCS: 36415; 70450; 72125; 80053; 81001; 85025; 93005; 93010; 99284

== ENCOUNTER → 2019-02-26 | Outpatient (CLI) | payer MEDICARE, OTHER ==
[2019-02-26 11:11] LABS: ALBUMIN 4.3 g/dL (3.5-5.0); ALKALINE PHOSPHATASE 50 U/L (38-126); ASPARTATE AMINO TRANSFERASE 26 U/L (14-36); BILIRUBIN,DIRECT 0.3 mg/dL (0.0-0.4); BILIRUBIN,TOTAL 0.6 mg/dL (0.2-1.3); TOTAL PROTEIN 7.1 g/dL (6.3-8.2)
[2019-02-27 13:36] LABS: CREATININE URINE 69.9 mg/dL (Not Estab.); MICROALBUMIN URINE 46.9 ug/mL (Not Estab.)
== END ==
LOC: OD 10:14
PROVIDERS: ATTEND Family Medicine
DX: R10.30 Lower abdominal pain, unspecified (principal); E11.9 Type 2 diabetes mellitus without complications
CPT/HCPCS: 36415; 80076; 82043; 82570; 83036

== ENCOUNTER 2019-05-26 14:56 | Emergency (ER) | payer MEDICARE, OTHER ==
--- NOTE | 2019-05-26 16:17 | ER Document Report ---
ED Medical Screen (RME) - General Chief Complaint: Fall Stated Complaint: FALL/HEAD INJURY Time Seen by Provider: 05/26/19 16:04 Primary Care Provider: CHARISMA CRUZ MD [Primary Care Provider] - Follow up as needed Notes: Patient is a 74-year-old female with a history of Parkinson's who presents emergency department with a chief complaint of head injury. who is in triage reports that the patient got up to get something out of the fridge and did not use her walker. Reports that she fell backwards striking the back of her head. He states that someone was in the same room as her but did not visualize the fall. Patient is unsure if she lost consciousness but states she does not remember much. states this did occur around 12 PM. Reports that she is acting her normal and has not had any vomiting. He reports that she did fall backwards striking the tile floor. Patient does report back pain but states that this is chronic in nature and that there is no new back pain since the fall. denies use of blood thinners. TRAVEL OUTSIDE OF THE [place] IN LAST 30 DAYS: No - Related Data Allergies/Adverse Reactions: shrimp Allergy (Verified 12/27/18 21:08) Sulfa (Sulfonamide Antibiotics) Allergy (Verified 08/18/17 21:47) Hives Past Medical History - Social History Chew tobacco use (# tins/day): No Frequency of alcohol use: None Drug Abuse: None Family history: Reviewed & Not Pertinent - Past Medical History Cardiac Medical History: Reports: Hx Hypertension Pulmonary Medical History: Neurological Medical History: Endocrine Medical History: Reports: Hx Diabetes Mellitus Type 1, Hx Diabetes Mellitus Type 2, Hx Hypothyroidism Renal/ Medical History: Denies: Hx Peritoneal Dialysis GI Medical History: Musculoskeltal Medical History: Reports Hx Arthritis Psychiatric Medical History: Reports: Hx Anxiety Infectious Medical History: Past Surgical History: Reports: Hx Appendectomy, Hx Section, Hx Hysterectomy, Hx Neurologic Surgery - CARPAL TUNNEL, Hx Orthopedic Surgery - BACK SURGERY x2. CARPAL TUNNEL RELEASE. - Immunizations Hx Diphtheria, Pertussis, Tetanus Vaccination: Yes Physical Exam - Vital signs Vitals: Temp Pulse Resp BP Pulse Ox 97.6 F 70 18 111/53 L 99 05/26/19 15:45 05/26/19 15:45 05/26/19 15:45 05/26/19 15:45 05/26/19 15:45 Course - Re-evaluation Re-evalutation: 05/26/19 16:16 Large hematoma noted to the right posterior head. There is no laceration or open wound. Will obtain a CT of the head and neck. I have greeted and performed a rapid initial assessment of this patient. A comprehensive ED assessment and evaluation of the patient, analysis of test results and completion of the medical decision making process will be conducted by additional ED providers. - Vital Signs Vital signs: Temp Pulse Resp BP Pulse Ox 97.6 F 70 18 111/53 L 99 05/26/19 15:45 05/26/19 15:45 05/26/19 15:45 05/26/19 15:45 05/26/19 15:45 Doctor's Discharge - Discharge Referrals: CHARISMA CRUZ MD [Primary Care Provider] - Follow up as needed
--- NOTE | 2019-05-26 16:36 | RADIOLOGY REPORT (SQ) ---
EXAM DESCRIPTION: CT HEAD WITHOUT COMPLETED DATE/TIME: 05/26/2019 4:25 pm REASON FOR STUDY: Fall, head injury, unk LOC COMPARISON: 12/27/2018 TECHNIQUE: Axial images acquired through the brain without intravenous contrast. Images reviewed wi th bone, brain and subdural windows. Additional sagittal and coronal reconstructions were generated. Images stored on PACS. All CT scanners at this facility use dose modulation, iterative reconstruction, and/or weight based d osing when appropriate to reduce radiation dose to as low as reasonably achievable (ALARA). [facility]: Dose Right [facility]: CareDose [facility]: Dose Right [facility]: Teradose 4D [facility]: Smart [employer] RADIATION DOSE: mGy. LIMITATIONS: None. FINDINGS: VENTRICLES: Normal size and contour. CEREBRUM: No masses. There is a small focal hemorrhage in the medial cortex of the right posterior p arietal lobe. . No midline shift. No evidence for acute infarction. Areas of low density in the wh ite matter most likely chronic small vessel ischemic changes. CEREBELLUM: No masses. No hemorrhage. No alteration of density. No evidence for acute infarction. EXTRAAXIAL SPACES: No fluid collections. No masses. ORBITS AND GLOBE: No intra- or extraconal masses. Normal contour of globe without masses. CALVARIUM: No fracture. PARANASAL SINUSES: No fluid or mucosal thickening. SOFT TISSUES: Right occipital scalp hematoma. OTHER: No other significant finding. IMPRESSION: Right occipital scalp hematoma with what appears to be a small cortical hemorrhage in th e medial right posterior parietal lobe. EVIDENCE OF ACUTE STROKE: NO. COMMENT: Quality ID # [id number]: Final reports with documentation of one or more dose reduction techniques (e.g., Automated exposure control, adjustment of the mA and/or kV according to patient size, use of iterative reconstruction technique) TECHNICAL DOCUMENTATION: JOB ID: [id number] 2010 [employer]- All Rights Reserved Reading location - IP/workstation name: [email or web address]
--- NOTE | 2019-05-26 16:41 | RADIOLOGY REPORT (SQ) ---
EXAM DESCRIPTION: CT CERVICAL SPINE WITHOUT COMPLETED DATE/TIME: 05/26/2019 4:25 pm REASON FOR STUDY: Fall, head injury, unk LOC COMPARISON: 12/27/2018 TECHNIQUE: Axial images acquired through the cervical spine without intravenous contrast. Images re viewed with lung, soft tissue and bone windows. Reconstructed coronal and sagittal MPR images review ed. Images stored on PACS. All CT scanners at this facility use dose modulation, iterative reconstruction, and/or weight based d osing when appropriate to reduce radiation dose to as low as reasonably achievable (ALARA). [facility]: Dose Right [facility]: CareDose [facility]: Dose Right [facility]: Teradose 4D [facility]: [employer] RADIATION DOSE: CT Rad equipment meets quality standard of care and radiation dose reduction techniq ues were employed. CTDIvol: 17.6 - 53.2 mGy. DLP: 1329 mGy-cm. mGy. LIMITATIONS: None. FINDINGS: ALIGNMENT: Anatomic. MINERALIZATION: Normal. VERTEBRAL BODIES: No fractures or dislocation. There is a fracture of the spinous process at T1 that does not appear to be acute. The bone is corticated on either side of the fracture line. DISCS: Disc spaces are narrowed from C4-C7 with marginal osteophytes. FACETS, LATERAL MASSES, POSTERIOR ELEMENTS: Mild hypertrophic facet change in the lower cervical spin e. HARDWARE: None in the spine. VISUALIZED RIBS: No fractures. LUNG APICES AND SOFT TISSUES: No significant or acute findings. OTHER: No other significant finding. IMPRESSION: Degenerative disc disease, spondylosis, and facet arthropathy. No acute finding. There is an old fracture of the spinous process of T1 that is not evident on the prior CT from 12/27/2018. TECHNICAL DOCUMENTATION: JOB ID: [id number] Quality ID # [id number]: Final reports with documentation of one or more dose reduction techniques (e.g., Au tomated exposure control, adjustment of the mA and/or kV according to patient size, use of iterative reconstruction technique) 2010 [email or web address]- All Rights Reserved Reading location - IP/workstation name: [email or web address]
[2019-05-26] MEDS ORDERED: LEVETIRACETAM INJ/PF 500 MG/5 ML SDV IV ONE (17:05)
[2019-05-26] MEDS ORDERED: TRANEXAMIC ACID INJ/PF 1,000 MG/10 ML SDV IV STA (17:05)
[2019-05-26] MEDS ORDERED: LEVETIRACETAM 1000 MG/NACL-ISO 1,000 MG/100 ML RTUPB IV ONE (17:12)
--- NOTE | 2019-05-26 17:24 | ER Document Report ---
ED General - General Chief Complaint: Fall Stated Complaint: FALL/HEAD INJURY Time Seen by Provider: 05/26/19 16:04 Primary Care Provider: CHARISMA CRUZ MD [Primary Care Provider] - Follow up as needed Notes: Patient is a 74-year-old white female with a past medical history of Parkinson's with chronic falls who presents to the emergency department accompanied by her with a chief complaint of fall prior to arrival. The patient reports she was walking into the kitchen when she fell backwards mechanically landing on the right posterior scalp. She denies any loss of consciousness but states she cannot really remember the incident. She denies any blood thinning medications however her history on her medication reconciliation states that she takes aspirin and a hydrocodone/ibuprofen combination. Patient denies any numbness or tingling at this time. She admits to headache localized to the area of impact and a small area of swelling in the same region. She denies any lacerations or bleeding. No visual disturbances dizziness or neck pain. No weakness. No other pain, complaints or concerns at this time. TRAVEL OUTSIDE OF THE [place] IN LAST 30 DAYS: No - Related Data Allergies/Adverse Reactions: shrimp Allergy (Verified 12/27/18 21:08) Sulfa (Sulfonamide Antibiotics) Allergy (Verified 08/18/17 21:47) Hives Past Medical History - Social History Smoking Status: Never Smoker Chew tobacco use (# tins/day): No Frequency of alcohol use: None Drug Abuse: None Family History: Reviewed & Not Pertinent Patient has suicidal ideation: No Patient has homicidal ideation: No - Past Medical History Cardiac Medical History: Reports: Hx Hypertension Pulmonary Medical History: Neurological Medical History: Endocrine Medical History: Reports: Hx Diabetes Mellitus Type 1, Hx Diabetes Mellitus Type 2, Hx Hypothyroidism Renal/ Medical History: Denies: Hx Peritoneal Dialysis GI Medical History: Musculoskeletal Medical History: Reports Hx Arthritis Psychiatric Medical History: Reports: Hx Anxiety Infectious Medical History: Past Surgical History: Reports: Hx Appendectomy, Hx Section, Hx Hysterectomy, Hx Neurologic Surgery - CARPAL TUNNEL, Hx Orthopedic Surgery - BACK SURGERY x2. CARPAL TUNNEL RELEASE. - Immunizations Hx Diphtheria, Pertussis, Tetanus Vaccination: Yes Review of Systems - Review of Systems Neurological/Psychological: Other - Head pain -: Yes All other systems reviewed and negative Physical Exam - Vital signs Vitals: Temp Pulse Resp BP Pulse Ox 97.6 F 70 18 111/53 L 99 05/26/19 15:45 05/26/19 15:45 05/26/19 15:45 05/26/19 15:45 05/26/19 15:45 - General General appearance: Appears well, Alert In distress: None - HEENT Head: Normocephalic, Tenderness - Tenderness and hematoma to the right posterior occipital scalp. No lacerations or abrasions noted. Eyes: Normal Conjunctiva: Normal Extraocular movements intact: Yes Eyelashes: Normal Pupils: PERRL Nerve palsy: No Visual lawler normal: Yes Ears: Normal External canal: Normal Tympanic membrane: Normal Sinus: Normal Nasal: Normal Mouth/Lips: Normal Mucous membranes: Normal Pharynx: Normal Neck: Normal - Respiratory Respiratory status: No respiratory distress Chest status: Nontender Breath sounds: Normal Chest palpation: Normal - Cardiovascular Rhythm: Regular Heart sounds: Normal auscultation - Neurological Neuro grossly intact: Yes Cognition: Normal Orientation: AAOx4 [place] Coma Scale Eye Opening: Spontaneous [place] Coma Scale Verbal: Oriented [place] Coma Scale Motor: Obeys Commands [place] Coma Scale Total: 15 Speech: Normal Cranial nerves: Normal Cerebellar coordination: Other - Chronic gait ataxia at baseline due to Parkinson's Motor strength normal: LUE, RUE, LLE, RLE Additional motor exam normals: Equal plant associate Sensory: Normal - Psychological Associated symptoms: Normal affect, Normal mood - Skin Skin Temperature: Warm Skin Moisture: Dry Skin Color: Normal Course - Re-evaluation Re-evalutation: 05/26/19 17:22 CT scan showing a small focal area of hemorrhage on the right. No mass-effect or shift. Called and spoke with neurosurgery, Dr. Gallagher advised and. They accepted the patient to the neuro ICU. They are sending a helicopter to transfer her. They recommended 1 g Keppra and 1 g TXA. Patient is stable for transfer at this time. She has 2 large bore IVs in the bilateral ACs. Blood work was drawn. Sinus rhythm on the monitor. No focal deficits at this time. - Vital Signs Vital signs: Temp Pulse Resp BP Pulse Ox 97.6 F 70 18 111/53 L 99 05/26/19 15:45 05/26/19 15:45 05/26/19 15:45 05/26/19 15:45 05/26/19 15:45 Discharge - Discharge Clinical Impression: Intracranial hemorrhage Condition: Stable Disposition: Critical Access Hospital Admitting Provider: Sadie Hemphill Dr. Samuel Referrals: CHARISMA CRUZ MD [Primary Care Provider] - Follow up as needed
[2019-05-26 17:32] LABS: ABSOLUTE BASOPHILS # (AUTO) 0.1 10^3/uL (0.0-0.2); ABSOLUTE EOSINOPHILS # (AUTO) 0.1 10^3/uL (0.0-0.6); ABSOLUTE LYMPHOCYTES (AUTO) 2.1 10^3/uL (0.5-4.7); ABSOLUTE MONOCYTES (AUTO) 0.7 10^3/uL (0.1-1.4); ABSOLUTE NEUT (AUTO) 5.2 10^3/uL (1.7-8.2); BASOPHILS % (AUTO) 0.7 % (0-2); EOSINOPHILS % (AUTO) 1.5 % (0-6); HEMATOCRIT 26.9 % (36.0-47.0); HEMOGLOBIN 8.8 g/dL (12.0-15.5); LYMPHOCYTES % (AUTO) 25.4 % (13-45); MEAN CORPUSCULAR HEMOGLOBIN 21.7 pg (27.0-33.4); MEAN CORPUSCULAR HGB CONC 32.6 g/dL (32.0-36.0); MEAN CORPUSCULAR VOLUME 66 fl (80-97); MONOCYTES % (AUTO) 8.6 % (3-13); PLATELET COUNT 414 10^3/uL (150-450); RED BLOOD COUNT 4.04 10^6/uL (3.72-5.28); RED CELL DISTRIBUTION WIDTH 17.5 % (11.5-14.0); SEGMENTED NEUTROPHILS % (AUTO) 63.8 % (42-78); TOTAL CELLS COUNTED % (AUTO) 100 %; WHITE BLOOD COUNT 8.1 10^3/uL (4.0-10.5)
[2019-05-26] MEDS ORDERED: LORAZEPAM INJ 2 MG/1 ML VIAL IV ONE (17:34)
[2019-05-26 17:45] VITALS: BP 113/82
[2019-05-26 17:50] LABS: INTERNATIONAL RATION (INR) 0.96; PROTHROMBIN TIME 12.7 SEC (11.4-15.4)
[2019-05-26 17:51] LABS: PARTIAL THROMBOPLASTIN TIME 31.5 SEC (23.5-35.8)
[2019-05-26 17:53] LABS: ALBUMIN 4.1 g/dL (3.5-5.0); ALKALINE PHOSPHATASE 75 U/L (38-126); ANION GAP 7 (5-19); ASPARTATE AMINO TRANSFERASE 25 U/L (14-36); BILIRUBIN,DIRECT 0.1 mg/dL (0.0-0.4); BILIRUBIN,TOTAL 0.5 mg/dL (0.2-1.3); BLOOD UREA NITROGEN 18 mg/dL (7-20); CALCIUM 9.6 mg/dL (8.4-10.2); CARBON DIOXIDE 29 mmol/L (22-30); CHLORIDE 98 mmol/L (98-107); GLUCOSE 85 mg/dL (75-110); POTASSIUM 4.5 mmol/L (3.6-5.0); TOTAL PROTEIN 6.9 g/dL (6.3-8.2)
--- NOTE | 2019-05-26 18:27 | EKG REPORT ---
SEVERITY:- OTHERWISE NORMAL ECG - SINUS RHYTHM LOW VOLTAGE IN FRONTAL LEADS : Confirmed by: Joslyn Pendleton 26-May-2019 18:27:21
== END 2019-05-26 17:50 | disposition short-term general hospital (02) ==
LOC: ER 14:56
DX: S06.309A Unspecified focal traumatic brain injury with loss of consciousness of unspecified duration, initial encounter (principal); R51 Headache; W19.XXXA Unspecified fall, initial encounter; Z79.899 Other long term (current) drug therapy; Z79.82 Long term (current) use of aspirin; Z88.2 Allergy status to sulfonamides; Z88.8 Allergy status to other drugs, medicaments and biological substances; I10 Essential (primary) hypertension; E11.9 Type 2 diabetes mellitus without complications
CPT/HCPCS: 93005; 99285; 96375; 96365; 36415; 85025; 85610; 85730; 80053; 70450; 72125; 93010; J2060; J3490; J1953

== ENCOUNTER → 2019-07-09 | Outpatient (CLI) | payer MEDICARE, OTHER ==
[2019-07-09 11:53] LABS: ANION GAP 5 (5-19); BLOOD UREA NITROGEN 25 mg/dL (7-20); CALCIUM 9.3 mg/dL (8.4-10.2); CARBON DIOXIDE 31 mmol/L (22-30); CHLORIDE 98 mmol/L (98-107); CHOLESTEROL 111.19 mg/dL (0-200); GLUCOSE 99 mg/dL (75-110); POTASSIUM 5.5 mmol/L (3.6-5.0); TRIGLYCERIDES 68 mg/dL (<150)
[2019-07-09 12:03] LABS: DIRECT LDL 33 mg/dL (<100)
== END ==
LOC: OD 10:24
PROVIDERS: ATTEND Family Medicine
DX: E03.9 Hypothyroidism, unspecified (principal); E11.9 Type 2 diabetes mellitus without complications; I10 Essential (primary) hypertension; D56.3 Thalassemia minor; R80.9 Proteinuria, unspecified; G20 Parkinson's disease; Z79.899 Other long term (current) drug therapy
CPT/HCPCS: 36415; 80048; 80061; 83036; 84443

== ENCOUNTER → 2019-07-10 | Outpatient (CLI) | payer MEDICARE, OTHER ==
--- NOTE | 2019-07-10 08:52 | RADIOLOGY REPORT (SQ) ---
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 NUMBER OF VIEWS: One view TECHNIQUE: AP Pelvis LIMITATIONS: None. FINDINGS: MINERALIZATION: Osteopenic HIPS: No acute fracture or dislocation. No worrisome bone lesions. PELVIS AND SACRUM: No acute fracture or dislocation. No worrisome bone lesions. PUBIS AND ISCHIUM: No acute fracture. LOWER LUMBAR SPINE: Degenerative convex rightward lumbar curvature SOFT TISSUES: No findings. OTHER: No other significant finding. IMPRESSION: No fracture. Suboptimal visualization of the coccyx to radiographic positioning. TECHNICAL DOCUMENTATION: JOB ID: [id number] [employer]- All Rights Reserved Reading location - IP/workstation name: [id number]
[2019-07-10 08:57] LABS: ABSOLUTE BASOPHILS # (AUTO) 0.1 10^3/uL (0.0-0.2); ABSOLUTE EOSINOPHILS # (AUTO) 0.1 10^3/uL (0.0-0.6); ABSOLUTE LYMPHOCYTES (AUTO) 1.4 10^3/uL (0.5-4.7); ABSOLUTE MONOCYTES (AUTO) 0.7 10^3/uL (0.1-1.4); ABSOLUTE NEUT (AUTO) 6.6 10^3/uL (1.7-8.2); BASOPHILS % (AUTO) 0.9 % (0-2); HEMATOCRIT 29.1 % (36.0-47.0); HEMOGLOBIN 9.4 g/dL (12.0-15.5); LYMPHOCYTES % (AUTO) 15.4 % (13-45); MEAN CORPUSCULAR HEMOGLOBIN 21.5 pg (27.0-33.4); MEAN CORPUSCULAR HGB CONC 32.2 g/dL (32.0-36.0); MEAN CORPUSCULAR VOLUME 67 fl (80-97); MONOCYTES % (AUTO) 8.4 % (3-13); PLATELET COUNT 588 10^3/uL (150-450); RED BLOOD COUNT 4.36 10^6/uL (3.72-5.28); RED CELL DISTRIBUTION WIDTH 15.9 % (11.5-14.0); SEGMENTED NEUTROPHILS % (AUTO) 74.3 % (42-78); TOTAL CELLS COUNTED % (AUTO) 100 %; WHITE BLOOD COUNT 8.9 10^3/uL (4.0-10.5)
[2019-07-10 09:22] LABS: ALBUMIN 3.8 g/dL (3.5-5.0); ALKALINE PHOSPHATASE 116 U/L (38-126); ANION GAP 7 (5-19); ASPARTATE AMINO TRANSFERASE 24 U/L (14-36); BILIRUBIN,TOTAL 0.3 mg/dL (0.2-1.3); BLOOD UREA NITROGEN 25 mg/dL (7-20); C-REACTIVE PROTEIN 39.6 mg/L (<10.0); CALCIUM 9.8 mg/dL (8.4-10.2); CARBON DIOXIDE 28 mmol/L (22-30); CHLORIDE 100 mmol/L (98-107); GLUCOSE 122 mg/dL (75-110); POTASSIUM 5.2 mmol/L (3.6-5.0)
[2019-07-10 09:38] LABS: ERYTHROCYTE SEDIMENTATION RATE 40 mm/hr (0-30)
== END ==
LOC: WC 08:11
PROVIDERS: ATTEND Nurse Practitioner Family
DX: E11.622 Type 2 diabetes mellitus with other skin ulcer (principal); L89.154 Pressure ulcer of sacral region, stage 4
CPT/HCPCS: 36415; 72170; 80053; 83036; 85025; 85652; 86140

== ENCOUNTER → 2019-07-10 | Emergency (ER) | payer MEDICARE, OTHER ==
[~2019-07-10] MED LIST: LABETALOL HCL INJ 20 MG/4 ML DISP.SYRIN IV ONE
--- NOTE | 2019-07-10 16:19 | ER Document Report ---
ED General - General Chief Complaint: Fall Stated Complaint: POSSIBLE STROKE/FALL Time Seen by Provider: 07/10/19 16:16 Primary Care Provider: GEETHA JORGENSEN RESIDENTIAL SALES, RESIDENTIAL SALES [Primary Care Provider] - Follow up as needed Notes: Patient presents with altered mental status and fall with right-sided weakness. She was witnessed to have a fall and soon after began having right-sided weakness left-sided facial droop? And trouble speaking with just moaning. She was hospitalized 3 months ago with a small bleed at other hospital. She is brought in as a code stroke by EMS with normal vital signs and blood sugar and no further history is available TRAVEL OUTSIDE OF THE [place] IN LAST 30 DAYS: No - Related Data Allergies/Adverse Reactions: shrimp Allergy (Verified 07/10/19 16:49) Sulfa (Sulfonamide Antibiotics) Allergy (Verified 07/10/19 16:49) Hives Past Medical History - Social History Smoking Status: Never Smoker Family History: Reviewed & Not Pertinent - Past Medical History Cardiac Medical History: Reports: Hx Hypertension Pulmonary Medical History: Neurological Medical History: Endocrine Medical History: Reports: Hx Diabetes Mellitus Type 1, Hx Diabetes Mellitus Type 2, Hx Hypothyroidism Renal/ Medical History: Denies: Hx Peritoneal Dialysis GI Medical History: Musculoskeletal Medical History: Reports Hx Arthritis Psychiatric Medical History: Reports: Hx Anxiety Infectious Medical History: Past Surgical History: Reports: Hx Appendectomy, Hx Section, Hx Hysterectomy, Hx Neurologic Surgery - CARPAL TUNNEL, Hx Orthopedic Surgery - BACK SURGERY x2. CARPAL TUNNEL RELEASE. - Immunizations Hx Diphtheria, Pertussis, Tetanus Vaccination: Yes Review of Systems - Review of Systems Notes: REVIEW OF SYSTEMS Dementia altered mental status PHYSICAL EXAMINATION General: Frail elderly Head: Atraumatic, normocephalic ENT: Mouth normal, oropharynx moist, no exudates or tonsillar enlargement Eyes: Conjunctiva normal, pupils equal, lids normal Neck: No JVD, supple, no guarding CVS: Normal rate, regular rhythm, no murmurs Resp: No resp distress, equal and normal breath sounds bilaterally GI: Nondistended, soft, no tenderness to palpation, no rebound or guarding Ext: No deformities, no edema, normal range of motion in upper and lower ext Back: No CVA or midline TTP Skin: No rash, warm Lymphatic: No lymphadeopathy noted Neuro: Awake but not alert, moaning only moans to pain, left facial asymmetry, flaccid right upper and lower extremity paralysis. Physical Exam - Vital signs Vitals: Pulse Resp BP Pulse Ox 109 H 18 170/85 H 100 07/10/19 16:12 07/10/19 16:12 07/10/19 16:12 07/10/19 16:12 Course - Re-evaluation Re-evalutation: 07/10/19 17:22 Patient presents with fall acute mental status change with aphasia and flaccid right-sided paralysis concerning for stroke ischemic versus hemorrhagic, less likely trauma/bleed causing neuro symptoms. History of dementia and Parkinson's Patient taken emergently to CT scan which shows a left posterior frontal/parietal intraparenchymal bleed. Confirm with radiology Dr. Winn. Unlikely traumatic. She is in a cervical collar and so I will send her back for CT of the C-spine. Labs obtained as she is not on any blood thinners Her C-spine CT seems to show a possible C7 spinous process fracture so we will keep her collar on. I discussed her case with Fan Jimenez from neurology as well as Dr. Espinosa at [facility] who accepted the patient to neuro ICU and recommended BP control with nicardipine. This hospital does not have nicardipine, or clevidipine so she was given a bolus dose of labetalol. She will be flown to [facility]. Did discuss with her family multiple times and I attempted to get them to change her CODE STATUS to DNR given her poor prognosis and baseline poor functionality and dementia but they have asked that she be full code. They will meet her at [facility]. - Vital Signs Vital signs: Temp Pulse Resp BP Pulse Ox 98.7 F 109 H 18 148/69 H 100 07/10/19 16:50 07/10/19 16:12 07/10/19 17:27 07/10/19 17:28 07/10/19 17:28 - Laboratory Result Diagrams: 07/10/19 16:20 07/10/19 16:20 Laboratory results interpreted by me: 07/10/19 07/10/19 07/10/19 16:20 16:20 16:26 WBC 11.9 H Hgb 8.6 L Hct 26.5 L MCV 66 L MCH 21.5 L RDW 15.5 H Plt Count 568 H Absolute Neuts (auto) 8.8 H Sodium 133.8 L BUN 26 H POC Glucose 114 H - Diagnostic Test Radiology reviewed: Image reviewed, Reports reviewed Critical Care Note - Critical Care Note Total time excluding time spent on procedures (mins): 45 Comments: The above patient is critically ill. Not including procedures, but including direct re-evaluations, speaking with patient and/or consultants, interpreting results, and documenting, I spent the total amount of minute listed listed above on critical care time Discharge - Discharge Clinical Impression: Stroke, hemorrhagic Condition: Critical Disposition: [facility] Referrals: GEETHA JORGENSEN RESIDENTIAL SALES, RESIDENTIAL SALES [Primary Care Provider] - Follow up as needed
[2019-07-10 16:34] LABS: ABSOLUTE BASOPHILS # (AUTO) 0.1 10^3/uL (0.0-0.2); ABSOLUTE EOSINOPHILS # (AUTO) 0.1 10^3/uL (0.0-0.6); ABSOLUTE LYMPHOCYTES (AUTO) 1.8 10^3/uL (0.5-4.7); ABSOLUTE MONOCYTES (AUTO) 1.1 10^3/uL (0.1-1.4); ABSOLUTE NEUT (AUTO) 8.8 10^3/uL (1.7-8.2); BASOPHILS % (AUTO) 0.5 % (0-2); EOSINOPHILS % (AUTO) 0.8 % (0-6); HEMATOCRIT 26.5 % (36.0-47.0); HEMOGLOBIN 8.6 g/dL (12.0-15.5); LYMPHOCYTES % (AUTO) 15.2 % (13-45); MEAN CORPUSCULAR HEMOGLOBIN 21.5 pg (27.0-33.4); MEAN CORPUSCULAR HGB CONC 32.4 g/dL (32.0-36.0); MEAN CORPUSCULAR VOLUME 66 fl (80-97); MONOCYTES % (AUTO) 9.2 % (3-13); PLATELET COUNT 568 10^3/uL (150-450); RED CELL DISTRIBUTION WIDTH 15.5 % (11.5-14.0); SEGMENTED NEUTROPHILS % (AUTO) 74.3 % (42-78); TOTAL CELLS COUNTED % (AUTO) 100 %; WHITE BLOOD COUNT 11.9 10^3/uL (4.0-10.5)
[2019-07-10 16:38] LABS: INTERNATIONAL RATION (INR) 0.98
[2019-07-10 16:39] LABS: PARTIAL THROMBOPLASTIN TIME 34.3 SEC (23.5-35.8)
--- NOTE | 2019-07-10 16:39 | RADIOLOGY REPORT (SQ) ---
EXAM DESCRIPTION: CT HEAD WITHOUT IMAGES COMPLETED DATE/TIME: 07/10/2019 3:17 pm REASON FOR STUDY: fall; stroke-like symptoms COMPARISON: CT head, 05/26/2019. CT head, 12/27/2018. TECHNIQUE: Axial images acquired through the brain without intravenous contrast. Images reviewed wi th bone, brain and subdural windows. Additional sagittal and coronal reconstructions were generated. Images stored on PACS. All CT scanners at this facility use dose modulation, iterative reconstruction, and/or weight based d osing when appropriate to reduce radiation dose to as low as reasonably achievable (ALARA). [facility]: Dose Right [facility]: CareDose [facility]: Dose Right [facility]: Teradose 4D [facility]: [employer] RADIATION DOSE: mGy. LIMITATIONS: None. FINDINGS: VENTRICLES: Normal size and contour. CEREBRUM: There is a new parenchymal hemorrhage involving the left posterior parietal lobe measuring 3.4 x 3.2 cm. There is surrounding vasogenic edema and probable subarachnoid component. The hemorrh age appears to be at the bravo-white matter junction of the left parietal lobe. Moderate mass effect with flattening of the sulci and mild flattening of the left lateral ventricle. No midline shift or evidence of herniation. Moderate patchy periventricular and deep white matter hypodense attenuation. There is intracranial atherosclerosis. Bravo-white matter differentiation is preserved. Interval r esolution of the small parenchymal hemorrhage in the right mesial high parietal lobe since previous. CEREBELLUM: No masses. No hemorrhage. No alteration of density. No evidence for acute infarction. EXTRAAXIAL SPACES: There may be a small subarachnoid component of the hemorrhage. No subdural a hemo rrhage. No mass. ORBITS AND GLOBE: No intra- or extraconal masses. Normal contour of globe without masses. CALVARIUM: No fracture. PARANASAL SINUSES: No fluid or mucosal thickening. SOFT TISSUES: No mass or hematoma. OTHER: No other significant finding. IMPRESSION: 1. Moderate left parietal lobe parenchymal hemorrhage with surrounding vasogenic edema and mild mass effect. There is a small subarachnoid hemorrhage component along the left parietal lobe sulci. Mild mass effect with no evidence of herniation. Finding likely represent a hemorrhagic stroke, however underlying mass lesion is not entirely excluded. 2. Mild chronic small vessel ischemic change. 3. Intracranial atherosclerosis. EVIDENCE OF ACUTE STROKE: Yes LEFT MCA. COMMENT: Findings discussed with Dr. Durbin on 07/10/2027 at 1630 hours. Quality ID # 436: Final reports with documentation of one or more dose reduction techniques (e.g., Au tomated exposure control, adjustment of the mA and/or kV according to patient size, use of iterative reconstruction technique) TECHNICAL DOCUMENTATION: JOB ID: [id number] 2010 [employer]- All Rights Reserved Reading location - IP/workstation name: [email or web address]
--- NOTE | 2019-07-10 16:41 | RADIOLOGY REPORT (SQ) ---
EXAM DESCRIPTION: CHEST SINGLE VIEW IMAGES COMPLETED DATE/TIME: 07/10/2019 3:23 pm REASON FOR STUDY: fall; stroke-like symptoms COMPARISON: None. EXAM PARAMETERS: NUMBER OF VIEWS: One view. TECHNIQUE: Single frontal radiographic view of the chest acquired. RADIATION DOSE: NA LIMITATIONS: None. FINDINGS: LUNGS AND PLEURA: No opacities, masses or pneumothorax. No pleural effusion. MEDIASTINUM AND HILAR STRUCTURES: No masses. Contour normal. HEART AND VASCULAR STRUCTURES: Heart normal in size. Normal vasculature. BONES: There are acute minimally displaced left lateral 8th and 9th rib fractures. HARDWARE: None in the chest. OTHER: No other significant finding. IMPRESSION: No acute cardiopulmonary disease. Acute minimally displaced fractures of the left later al 8th and 9th ribs. TECHNICAL DOCUMENTATION: JOB ID: [id number] 2010 [employer]- All Rights Reserved Reading location - IP/workstation name: [email or web address]
[2019-07-10 17:00] LABS: ALBUMIN 3.6 g/dL (3.5-5.0); ALKALINE PHOSPHATASE 108 U/L (38-126); ANION GAP 8 (5-19); ASPARTATE AMINO TRANSFERASE 24 U/L (14-36); BILIRUBIN,TOTAL 0.3 mg/dL (0.2-1.3); BLOOD UREA NITROGEN 26 mg/dL (7-20); CALCIUM 9.3 mg/dL (8.4-10.2); CARBON DIOXIDE 25 mmol/L (22-30); CHLORIDE 101 mmol/L (98-107); GLUCOSE 110 mg/dL (75-110); POTASSIUM 4.7 mmol/L (3.6-5.0); TOTAL PROTEIN 6.7 g/dL (6.3-8.2)
--- NOTE | 2019-07-10 17:34 | RADIOLOGY REPORT (SQ) ---
EXAM DESCRIPTION: CT CERVICAL SPINE WITHOUT IMAGES COMPLETED DATE/TIME: 07/10/2019 3:58 pm REASON FOR STUDY: FALL NECK PAIN. Acute left parietal intracranial hemorrhage. Poor historian. COMPARISON: CT head same date. CT cervical spine, 05/26/2019. TECHNIQUE: Axial images acquired through the cervical spine without intravenous contrast. Images re viewed with lung, soft tissue and bone windows. Reconstructed coronal and sagittal MPR images review ed. Images stored on PACS. All CT scanners at this facility use dose modulation, iterative reconstruction, and/or weight based d osing when appropriate to reduce radiation dose to as low as reasonably achievable (ALARA). [facility]: Dose Right [facility]: CareDose [facility]: Dose Right [facility]: Teradose 4D [facility]: [employer] RADIATION DOSE: CT Rad equipment meets quality standard of care and radiation dose reduction techniq ues were employed. CTDIvol: 12.9 mGy. DLP: 298 mGy-cm. mGy. LIMITATIONS: None. FINDINGS: ALIGNMENT: Anatomic. MINERALIZATION: Choose to VERTEBRAL BODIES: There is no acute vertebral body fracture or loss of vertebral body height. Multil evel spondylosis with bridging marginal osteophytes. Chronic degenerative fusion at C6-C7 is unchang ed. DISCS: Multilevel degenerative disc disease with loss of intervertebral disc height. Small disc bulg e at C4-C5 with calcification of the discs annulus, stable. Posterior projecting disc osteophyte com plexes at C4-5, C5-6, and C6-7 contribute to mild acquired spinal canal stenosis at these levels. Fi ndings are stable from prior. FACETS, LATERAL MASSES, POSTERIOR ELEMENTS: Subacute to chronic appearing fracture of the posterior s pinous process at T1 and right T1 transverse process, stable since previous examination. No displace d or evidence of an acute posterior element fracture. No perched facets. HARDWARE: None in the spine. VISUALIZED RIBS: No fractures. LUNG APICES AND SOFT TISSUES: No significant or acute findings. OTHER: No other significant finding. IMPRESSION: 1. Subacute to chronic nondisplaced fracture of the posterior spinous process and right transverse pr ocess at T1, stable since previous examination. No acute fracture or dislocation of the cervical spi ne. 2. Multilevel spondylosis, degenerative disc disease, and facet arthropathy. There is mild acquired spinal canal stenosis from C4-C7 levels secondary to disc osteophyte complexes. If there is clinical concern for cord contusion or compression, further evaluation with MRI may provide additional inform ation. TECHNICAL DOCUMENTATION: JOB ID: [id number] Quality ID # [id number]: Final reports with documentation of one or more dose reduction techniques (e.g., Au tomated exposure control, adjustment of the mA and/or kV according to patient size, use of iterative reconstruction technique) 2010 [employer]- All Rights Reserved Reading location - IP/workstation name: [email or web address]
[2019-07-10 17:45] VITALS: BP 148/69
--- NOTE | 2019-07-11 16:11 | EKG REPORT ---
SEVERITY:- ABNORMAL ECG - SINUS TACHYCARDIA LOW VOLTAGE IN FRONTAL LEADS VPC : Confirmed by: Joslyn Pendleton 11-Jul-2019 16:11:01
== END | disposition short-term general hospital (02) ==
LOC: ER 16:11
DX: I60.9 Nontraumatic subarachnoid hemorrhage, unspecified (principal); G81.01 Flaccid hemiplegia affecting right dominant side; R47.01 Aphasia; I10 Essential (primary) hypertension; E11.9 Type 2 diabetes mellitus without complications; F03.90 Unspecified dementia, unspecified severity, without behavioral disturbance, psychotic disturbance, mood disturbance, and anxiety; Z91.013 Allergy to seafood; Z88.2 Allergy status to sulfonamides
CPT/HCPCS: 93005; 99291; 96374; 36415; 82962; 85610; 85730; 87070; 84484; 71045; 70450; 72125; 93010; J3490